=== PATIENT | female | born 1985 | race Caucasian/White ===

== ENCOUNTER 2024-12-19 09:16 | Outpatient (AMB) | payer BC, SELFPAY ==
--- NOTE | 2024-12-19 09:17 | AM.OFFWIN_ITS ---
Intake Vital Signs 12/19/24 09:22 12/19/24 09:45 Height 5 ft 7 in Weight 249 lb 8 oz BMI 39.1 BP 184/90 H 150/82 H Blood Pressure Location Rt brachial Rt brachial Position Sitting Sitting Respiration 14 Pulse 109 H 102 H Pulse Source Pulse Oximeter Auscultation Temp 97.1 F Temp Source Oral Pulse Oximetry (%) 99 Oxygen Delivery Method Room Air Intake Visit Reasons: est/blood pressure issue Intake Note: Patient c/o high bp and patint also has been having headache. Patient went to urgent care last week and bp was 166/110. Patient Tobacco Use Status: Never used Tobacco Allergies No Known Allergies Allergy (Verified 12/19/24 09:41) Medication List - Last Reconciled 12/19/24 by JAK Cole-YAW amoxicillin-pot clavulanate 875-125 mg 1 tab PO BID lamotrigine 400 mg PO DAILY lorazepam 0.25 mg PO DAILY PRN valacyclovir 500 mg PO DAILY Do you need a note to return to daycare/school/sports/work: No HPI HPI Comments History of Present Illness Details History of Present Illness The patient is a 39-year-old female presenting with elevated blood pressure. - Initially flagged as elevated during a n urgent care visit for sinus or ear infection consultation. - No past personal history of hypertensi on, and blood pressure was normal during pregnancies. - Family history indicates the mother's experience with hypertension and diabetes, including a heart attack. - Current blood pressure reading is 150/ 82. - Associated aural symptoms include ting ling near the right ear, ear feels full; on augmentin. - No current chest pain, dyspnea, or benjy ma are reported. - Denies use of cold medications, stimul ants. Physical Exam General: Well developed, well nourished, in no acute distress. Appears stated age. Head: Normocephalic, atraumatic. Eyes: Pupils are equal, round and reactive to light and accommodation. Conjunctivae are clear. Vision grossly normal. TM intact and dull on R, intact and clear on L Lungs: Clear to auscultation bilaterally. No rales, rhonchi or wheeze noted. Good air flow in all drake. No carotid bruit bilat. Heart: Mildly tachycardic, Regular rhythm. No murmurs, click, rubs or gallops are noted. Pulses: Peripheral pulses are equal and palpable bilaterally. Extremities: No clubbing, cyanosis nor edema is noted. Psych: Mildly anxious Neuro - nonfocal Results - Labs ordered including blood count, ki dney function, liver enzymes, and electrolytes. - Diabetes screening due to family histo ry and its potential impact on blood pressure. - Additional tests include magnesium and phosphorus levels, urine test for kidney screening, and thyroid function tests. - EKG ordered for assessment of heart rh ythm and to screen for any hypertensive heart disease. WNL no LVH Discussion Notes In today's visit, we discussed the likely diagnosis of essential hypertension given the elevated blood pressure reading and family history. The patient expressed concern regarding the ear symptoms; this was explored, and potential fluid in the right ear was noted. An EKG was proposed to rule out cardiac enlargement due to longstanding hypertension. I advised labs to screen for contributing conditions such as diabetes and thyroid disease. The necessity of signing up for our patient portal to track lab results was highlighted, and she was shown how to do so using a QR code. We discussed the options moving forward, particularly the potential need for hypertension medication based on lab results, as well as the importance of follow-up to prevent cardiac complications. I aimed to schedule a follow-up within one to two weeks and discussed transitioning to [facility] pharmacy as [facility] branches were closing. Assessment and Plan 1. Essential Hypertension: The patient's elevated blood pressure is identified as essential hypertension, likely linked to family history. An EKG has been ordered for cardiac evaluation, and various lab tests will screen for associated conditions. Follow-up will focus on medication options post-lab results and lifestyle modifications to manage blood pressure levels. Close monitoring is advised due to the family?s cardiovascular history. 2. Middle Ear Effusion (Otitis Media wit h Effusion): The dull right tympanum indicates fluid accumulation, potentially contributing to the patient's symptoms. Currently observed conservatively, though the patient will be re- evaluated if symptoms persist. Cont Augmentin and complete course. will need to ensure resolution at next visit. If persists, consider additional workup. Pt will be sent lab results and plan via the portal later today. Patient Instructions - Monitor your blood pressure regularly at home. - Complete the lab tests ordered to asse ss overall health and rule out secondary causes of hypertension. - Sign up for the patient portal to view lab results and receive medical updates. - Schedule a follow-up appointment withbarb n two weeks to discuss your results and treatment plan. - Switch your pharmacy to [facility] due to [facility] closures if you need prescription medications. Consent Patient was informed and verbally consented to the use of an ambient scribe for clinic note documentation during this visit. Total time spent caring for the patient today was 31 minutes. This includes time spent before the visit reviewing the chart, time spent during the visit, and time spent after the visit on documentation, reviewing laboratory results, diagnostic imaging, medications, performing a medically necessary evaluation, counseling on diagnoses, care coordination, ordering appropriate tests, ordering appropriate medications, review of tests performed by other providers, reporting test results with the patient, communication with other healthcare providers. PFSH Social History Patient Tobacco Use Status: Never used Tobacco Physical Exam Vital Signs: Last Vital Signs Temp 97.1 F 12/19/24 09:22 Pulse 102 H 12/19/24 09:45 Resp 14 12/19/24 09:22 BP 150/82 H 12/19/24 09:45 Pulse Ox 99 12/19/24 09:22 Oxygen Delivery Method Room Air 12/19/24 09:22 BMI result Body Mass Index 39.1 Office Procedures EKG [id number], Complete Assessment & Plan Assessment & Plan (1) HTN (hypertension): Code(s): I10 - Essential (primary) hypertension Qualifiers: Hypertension type: primary hypertension Qualified Code(s): I10 - Essential (primary) hypertension (2) BMI 39.0-39.9,adult: Code(s): Z68.39 - Body mass index [BMI] 39.0-39.9, adult (3) Obesity (BMI 30-39.9): Code(s): E66.9 - Obesity, unspecified Plan . Orders: Orders 2 Complete Blood Count no Diff Today I10 - Essential (primary) hypertension Hemoglobin A1c Today I10 - Essential (primary) hypertension Microalbumin, Random (w Creat) Today I10 - Essential (primary) hypertension TSH reflex Free T4 Today I10 - Essential (primary) hypertension Magnesium Today I10 - Essential (primary) hypertension Comprehensive Met. Panel Today I10 - Essential (primary) hypertension Phosphorus Today I10 - Essential (primary) hypertension Patient Instructions: Patient Instructions - Monitor your blood pressure regularly at home. - Complete the lab tests ordered to assess overall health and rule out secondary causes of hypertension. - Sign up for the patient portal to view lab results and receive medical updates. - Schedule a follow-up appointment within two weeks to discuss your results and treatment plan. - Switch your pharmacy to [facility] due to [facility] closures if you need prescription medications. Coding Level of Care Code Est Pt Level 4 (73321) Diagnoses Primary hypertension I10 Hypertension type: primary hypertension BMI 39.0-39.9,adult Z68.39 Obesity (BMI 30-39.9) E66.9 CPT Codes EKG - CPT: 59447-[id number], Complete ([id number])
[2024-12-19 09:22] VITALS: BP 184/90; PULSE 109; RESP 14; TEMP 36.2; O2SAT 99; BMI 39.1
[2024-12-19 09:45] VITALS: BP 150/82; PULSE 102
== END 2024-12-19 10:05 | disposition home or self-care (01) ==
PROVIDERS: Visit Provider Nurse Practitioner Family
DX: I10 Essential (primary) hypertension (principal); Z68.39 Body mass index [BMI] 39.0-39.9, adult; E66.9 Obesity, unspecified

== ENCOUNTER → 2024-12-19 09:16 | Outpatient (BNVA) | payer BC, SELFPAY | DX: I10 Essential (primary) hypertension (principal); E66.9 Obesity, unspecified; Z68.39 Body mass index [BMI] 39.0-39.9, adult | CPT/HCPCS: 93005 ==

== ENCOUNTER 2024-12-19 10:15 | Outpatient (REF) | payer BC, SELFPAY ==
[2024-12-19 11:58] LABS: Hematocrit 43.8 % (37.0-47.0); Hemoglobin 15.1 g/dl (12.0-16.0); Mean Corpuscular HGB Conc 34.5 g/dl (31.0-35.0); Mean Corpuscular Hemoglobin 29.6 pg (27.0-33.0); Mean Corpuscular Volume 85.9 fL (80.0-98.0); Mean Platelet Volume 10.2 fL (9.4-12.3); Platelet Count 298 X10*3/uL (160-400); Red Cell Distribution Width 12.7 % (11.0-16.0); White Blood Count 10.5 X10*3/uL (4.8-10.8)
[2024-12-19 12:14] LABS: Estimated Average Glucose 105 mg/dL; Hemoglobin A1c % 5.3 % (<6.0); Total Hemoglobin (HGBA1C) 3942.8735 umol/L
[2024-12-19 12:33] LABS: Creatinine Urine 100.35 mg/dL; Microalbum/Creatinine Ratio Ur 10.9 ug/mg cr (<30)
[2024-12-19 12:55] LABS: Alanine Aminotransferase 26 U/L (0-31); Albumin Level 4.2 g/dL (3.5-5.0); Alkaline Phosphatase 109 U/L (39-117); Anion Gap 12 (12-20); Aspartate Amino Transferase 24 U/L (5-31); Bilirubin Total 0.3 mg/dL (0.0-1.0); Blood Urea Nitrogen 11 mg/dL (9-16); Calcium 9.2 mg/dL (8.4-10.2); Carbon Dioxide 26 mmol/L (22-29); Chloride 106 mmol/L (96-108); Estimated Glomerular Filt Rate > 60; Glucose Random 94 mg/dL (60-115); Magnesium 1.9 mg/dL (1.6-2.6); Potassium 3.7 mmol/L (3.3-5.1); Sodium 140 mmol/L (135-145)
[2024-12-19 13:00] LABS: TSH reflex Free T4 2.56 uIU/mL (0.32-4.0)
== END 2024-12-19 10:16 | disposition home or self-care (01) ==
LOC: HO.WFDLDS 10:15
PROVIDERS: Visit Provider Nurse Practitioner Family
DX: I10 Essential (primary) hypertension (principal); Z13.1 Encounter for screening for diabetes mellitus
CPT/HCPCS: 36415; 80053; 82043; 82570; 83036; 83735; 84100; 84443; 85027

== ENCOUNTER 2024-12-26 08:07 | Outpatient (REF) | payer BC, SELFPAY ==
[2024-12-26 13:03] LABS: Phosphorus 3.3 mg/dL (2.7-4.5)
== END 2024-12-26 08:08 | disposition home or self-care (01) ==
LOC: HO.WFDLDS 08:07
PROVIDERS: Visit Provider Nurse Practitioner Family
DX: E83.39 Other disorders of phosphorus metabolism (principal)
CPT/HCPCS: 36415; 84100

== ENCOUNTER 2025-01-12 10:13 | Outpatient (AMB) | payer BC, SELFPAY ==
--- NOTE | 2025-01-12 10:36 | A.OFFPC_ITS ---
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 Intake Note: New patient visit Assistant Pressman Required: No Allergies No Known Allergies Allergy (Verified 12/19/24 09:41) Medication List - Last Reconciled 01/12/25 by Zeny Mortensen PA-C cetirizine (Zyrtec) 10 mg PO DAILY PRN lamotrigine 400 mg PO DAILY lorazepam 0.25 mg PO DAILY PRN mometasone 0.1% 1 appl topical DAILY valacyclovir 500 mg PO DAILY Tobacco use date assessed: 01/12/25 Dental Screening Dental Screen Date: 01/12/25 Did you have a dental visit in the last 12 months?: Yes Did you have a dental problem in the last 6 months where you did not have access to dental care?: No Was dental information given to patient?: Patient has dentist 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 She has a hx of elevated bps without dx of htn, anxiety and depression -Needs referral to derm for skin checks, fam hx of skin ca CV: Bp today in the office is elevated at 124/88. Psych: in 2005 she was dx with anxiety and depression and has been on lamotrigine and lorazepam since then. No hospitalizations. No SI/HI. GI: She states for the last 2 years she has not had a normal bowel movement. She goes to the bathroom 2-3 x a day at a minimum. She has loose stools. She has not fully formed BM in 2 years. She sometimes gets constipation but never has to treat this. She is sensitive to certain foods likes like salad. She denies any blood in stool. No weight loss. She has noted mucous with the stool. No rectal pain or irritation. No colonoscopy hx. No travel prior to starting. No antibiotic use. No fam hx of IBD. 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 with [facility] Fam hx: sister has melanoma, maternal grandfather lung ca, mother ID in her 60s, brother has htn PFSH Surgical History (Updated 01/12/25 @ 11:28 by Tawanna Cifuentes CMA) H/O removal of cyst Family History (Updated 01/12/25 @ 11:33 by Tawanna Cifuentes CMA) Mother HTN (hypertension) High serum cholesterol sulfate Diabetes Heart attack Maternal Grandmother HTN (hypertension) Diabetes Alcoholism Maternal Grandfather Lung cancer Alcoholism Other Melanoma Social History (Updated 01/12/25 @ 11:33 by Tawanna Cifuentes CMA) Housing: House Alcohol intake: current Patient Tobacco Use Status: Former Tobacco user (quit 2009) Cigarette Packs Per Day: 0.5 Years Smoked: 10 e-Cigarette/Vaping Use: Never Used Second Hand Smoke Exposure: No Use of substances other than those prescribed or required for medical reasons: No service: No Current occupational status: employed 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 1. Little interest or pleasure in doing things: not at all 2. Feeling down, depressed, or hopeless: not at all 3. Trouble falling or staying asleep, or sleeping too much: not at all 4. Feeling tired or having little energy: not at all 5. Poor appetite or overeating: not at all 6. Feeling bad about yourself - or that you are a failure or have let yourself or your family down: not at all 7. Trouble concentrating on things, such as reading the newspaper or watching television: not at all 8. Moving or speaking so slowly that other people could have noticed. Or the opposite - being so fidgety or restless that you have been moving around a lot more than usual: not at all 9. Thoughts that you would be better off or of hurting yourself in some way: not at all Total score: 0 Depression Screening Interpretation: Negative Depression Screening Done: Yes 93995 - PHQ-9 Billing: Yes Source: Developed by Drs. Elder Tipton, Sarina Lazaro, Chad Sarkar and colleagues, with an educational moody from [employer]. Thrive Questionnaire Date Thrive assessed: 12/26/24 I am a: Patient What is your living situation today?: I have a steady place to live Within the past 12 months, did the food you bought not last and you didn't have the money to get more?: Never true Within the past 12 months, did you worry whether your food would run out before you got money to buy more?: Never true Do you have trouble paying for medicines?: No Do you have trouble getting transportation to medical appointments?: No Do you have trouble paying your heating and electricity bill?: No Do you have trouble taking care of your child, family member or friend?: No Do you have trouble with day-to-day activities such as bathing, preparing meals, shopping, managing finances, etc.?: No Are you currently unemployed and looking for a job?: No Are you interested in more education?: No Please select the resources that you would like help with: None Currently or been in a relationship where the following occur: No concerns reported THRIVE Score: 0 AUDIT C Alcohol Use Questionnaire (AUDIT-C) 1. How often do you have a drink containing alcohol?: Monthly or less 2. How many drinks containing alcohol do you have on a typical day when you are drinking?: 1 or 2 3. How often do you have six or more drinks on one occasion?: Never Total Score: 1 TJ-7 AMB Questionnaire TJ-7 Feeling nervous, anxious, or on edge: 0 = Not at all Not being able to stop or control worryin = Not at all Worrying too much about different things: 0 = Not at all Trouble relaxin = Not at all Being so restless that it is hard to sit still: 0 = Not at all Becoming easily annoyed or irritable: 0 = Not at all Feeling afraid as if something awful might happen: 0 = Not at all Total TJ-7 score (0-4 normal; 5-9 mild; 10-14 moderate; 15-21 severe): 0 Source: Developed by Drs. Elder Tipton, Sarina Lazaro, Chad Sarkar and colleagues, with an educational moody from [employer]. TJ-7 Assessment Billing TJ-7 Assessment Tool: TJ-7 Assessment 52395 Physical exam (Primary Care) Vital Signs: Last Vital Signs Pulse 103 H 01/12/25 10:43 BP 124/88 01/12/25 10:43 Pulse Ox 98 01/12/25 10:43 Oxygen Delivery Method Room Air 01/12/25 10:43 BMI result Body Mass Index 38.5 Tobacco/Smoking Status: Tobacco use Status Tobacco use date assessed 01/12/25 01/12/25 10:46 Patient Tobacco Use Status Former Tobacco user (quit 01/12/25 10:46 2009) e-Cigarette/Vaping Use Never Used 01/12/25 10:46 PHQ-9: PHQ-9 Score PHQ-9: Total score 0 01/12/25 11:33 Depression Screening Interpretation: Negative Thrive Assessment: Date of Thrive Assessment Date Thrive assessed 12/26/24 01/12/25 10:39 Currently or been in a relationship where the following occur: No concerns reported Const Orientation/consciousness: patient oriented x3 HENMT Ears: hearing grossly normal bilaterally Neck Thyroid: Thyroid normal Lymphatic: no lymphadenopathy noted Resp Auscultation: clear to auscultation bilaterally Cardio Rate: regular rate Rhythm: regular rhythm Heart sounds: S1 normal heart sound present and S2 normal heart sound present GI Inspection: Yes normal to inspection Palpation (GI): Soft to palpation and Other GI palpation findings present (nontender, no cva tenderness) Auscultation: normoactive bowel sounds Rectal Exam - Female: deferred Skin General skin exam: no rashes or lesions noted Neuro General: patient oriented x3, gait normal and no focal motor deficits Coding Level of Care Code New Pt Level 4 (47050) Complex EM visit Add On G2211 Diagnoses Primary hypertension I10 Hypertension type: primary hypertension Hypophosphatemia E83.39 Frequent loose stools R19.7 Additional Codes PHQ-9 - 90535 - PHQ-9 Billing: Yes ([id number]) TJ-7 Assessment Billing - TJ-7 Assessment Tool: TJ-7 Assessment 41613 ([id number]) Assessment & Plan Assessment & Plan (1) HTN (hypertension): Code(s): I10 - Essential (primary) hypertension Category: Medical Qualifiers: Hypertension type: primary hypertension Qualified Code(s): I10 - Essential (primary) hypertension Plan: We will start on metoprolol. Discussed risks and benefits and adverse effects of this medication. Opted for this as she does get very nervous going places and does feel at times that that elevates her blood pressure. She also does have a little tachycardia but that resolves when she feels comfortable with the location. This has been for most of her life. (2) Hypophosphatemia: Code(s): E83.39 - Other disorders of phosphorus metabolism Category: Medical Plan: We will rechecked. (3) Frequent loose stools: Code(s): R19.7 - Diarrhea, unspecified Category: Medical Plan: Referral to GI. Labs ordered today. We will follow up pending test results. Orders: Orders Lipid Panel Today E83.39 - Other disorders of phosphorus metabolism, I10 - Essential (primary) hypertension Comprehensive Met. Panel Today E83.39 - Other disorders of phosphorus metabolism, I10 - Essential (primary) hypertension Phosphorus Today E83.39 - Other disorders of phosphorus metabolism C Reactive Protein Today R19.7 - Diarrhea, unspecified Calprotectin, Fecal Today R19.7 - Diarrhea, unspecified Vitamin D 25-OH (D2 and D3) Today E83.39 - Other disorders of phosphorus metabolism, I10 - Essential (primary) hypertension, R19.7 - Diarrhea, unspecified Vitamin B12 Today E83.39 - Other disorders of phosphorus metabolism, I10 - Essential (primary) hypertension, R19.7 - Diarrhea, unspecified Erythrocyte Sedimentation Rate Today R19.7 - Diarrhea, unspecified Endomysial IgA rflx Titer Today R19.7 - Diarrhea, unspecified Transglutaminase Ab IgG Today R19.7 - Diarrhea, unspecified Immunoglobulin A Today R19.7 - Diarrhea, unspecified Referrals Dermatology Referral Z12.83 - Encounter for screening for malignant neoplasm of skin Gastroenterology Referral R19.7 - Diarrhea, unspecified Medications: New metoprolol succinate ER 25 mg PO DAILY 30 tabs 1RF
[2025-01-12 10:43] VITALS: BP 124/88; PULSE 103; O2SAT 98; BMI 38.5
--- OUTSIDE RECORDS SUMMARY | 2025-01-12 12:06 | XMS_ITS | Clinical Summary ---
Author Organization [facility] [address] [facility] Address [address] [place] [phone] Phone Care Team Providers Care Juvenile Justice Officer Name Role Phone Zeny Mortensen Primary Care Provider [phone] Allergies No known active allergies Medications acetaminophen (TYLENOL) 500 mg tablet Take 2 tablets (1,000 mg total) by mouth every 6 (six) hours if needed. Active ibuprofen (ADVIL,MOTRIN) 200 mg tablet Take 4 tablets (800 mg total) by mouth every 6 (six) hours if needed. Active lamoTRIgine (LaMICtal) 200 mg tablet TAKE 2 TABLETS BY MOUTH EVERY DAY TOTAL OF 400MG EVERY DAY Active LORazepam (ATIVAN) 0.5 mg tablet Take 1 tablet (0.5 mg total) by mouth 1 (one) time each day if needed for anxiety. Active mometasone (ELOCON) 0.1 % ointment Apply a thin layer to the affected area nightly 30 g 10/26/2024 Active valACYclovir (VALTREX) 500 mg tablet TAKE 1 TABLET BY MOUTH DAILY 90 tablet 1 12/09/2024 Active Active Problems Problem Noted Date Diagnosed Date Hyperkeratosis 12/08/2023 Overview (08/29/2024): Last Assessment & Plan: Almost compeltely resolved. Lichen simplex chronicus 12/08/2023 Overview (08/29/2024): Last Assessment & Plan: Improved,but likely needs long tream treatment. Will cut back to nightly most areas and BID in those areas of fissuring. If not resolved by next visit, could consider excision of left posterior fissure and surrounding hyperkeratosis. Unclear if she has LS, but not based on exam today. She willc ontinue VSC guidelines and regular skin barrier. She will cut back to MWFSu on two weeks. Assessment & Plan (11/21/2024 5:45 PM EST): Significantly improved. Continue mometasone nightly and Vaseline QAM with particular attention to hyperkeratotic area. She agreed. Assessment & Plan (10/26/2024 1:03 PM EST): Worsened due to non-compliance. I explained to Jossy that many people with this condition, like eczema, need to use a regular medication to keep the skin healthy and asymptomatic. In her case, her long pause likely allowed things to worsen again. I explained that the skin may not be changing as it is fissured, which can be a sign of the steroid being too potent. I encouraged her to switch to mometasone, soak and seal in the AM with Vaseline or coconut oil, and follow the VSC guidelines strictly. She agreed. Yeast culture sent to rule out as a cause for worsening sx. Will treat prn. Major depressive disorder, r ecurrent, moderate (CMS/HCC V24, CMS/HCC V28) 11/21/2020 Obesity (BMI 30-39.9) 01/06/2018 Migraine 10/09/2017 Generalized anxiety disorder 06/25/2017 Herpes simplex 04/27/2017 Overview (08/29/2024): Genital, 3 lifetime infections as of 10/2015 Mood swings 04/27/2017 Encounters Date Type Department Care Team Description 11/21/2024 1:45 PM EST Office Visit Obstetrics and Gynecology [address] [phone] Jordyn Hsu MD Lichen simplex chronicus (Primary Dx) 10/26/2024 8:30 AM EST Office Visit Obstetrics and Gynecology [address] [phone] Jordyn Hsu MD Lichen simplex chronicus (Primary Dx) from Last 3 Months Immunizations Name Administration Dates Next Due HPV, Quadrivalent 01/26/2007,10/09/2006,07/28/20 06 Moderna SARS-CoV-2 COVID-19, mRNA, LNP-S, preservative free 08/26/2021,02/08/2021,01/11/2021 Td Tetanus diptheria (Tdvax) 7yo and older 10/29,07/28/2006 Tdap Tetanus diptheria acell ular pertussis (Boostrix; Adacel) 7yo and older 10/07/2011 Surgical History Surgery Date Site/Laterality Comments WISDOM TOOTH EXTRACTION 2005 PROCEDURE: HISTORICAL WISDOM TEETH EXTRACTION Medical History Medical History Date Comments Hypothyroidism 10/09/2017 DX:Hypothyroidis m; COMMENT: Grave's ophthalmopathy Adjustment disorder with dep ressed mood 06/25/2017 DX:Adjustment disorder with depressed mood Generalized anxiety disorder 06/25/2017 DX: Generalized anxiety disorder Herpes simplex 04/27/2017 DX:Herpes simple x; COMMENT: Genital, 3 lifetime infections as of 10/2015 Mood swings 04/27/2017 DX:Mood swings Migraine 10/09/2017 DX:Migraine Bipolar disorder ([facility]/HCC V2 4, CMS/HCC V28) 12/15/2017 DX:Bipolar disorder ([facility]) Family History Medical History Relation Name Comments No Known Problems Brother 1/2 bro No Known Problems Daughter Alcohol abuse Father no contact Diabetes Mother Heart attack Mother colon polyp, DM , HTN, CAD, PVD ([place] age 60) Hypertension Mother Breast cancer Mother's side great aunt COPD Paternal Grandmother Stroke Melanoma Sister 1 1/2 sister dx at 31, doing well at 36 No Known Problems Sister 2 Colon cancer Neg Hx Ovarian cancer Neg Hx Prostate cancer Neg Hx Uterine cancer Neg Hx Relation Name Status Comments Brother 1/2 bro Alive Daughter Alive Father Alive Maternal Grandfather Maternal Grandmother Mother Alive Mother's side Paternal Grandfather Paternal Grandmother Sister 1 1/2 sister Alive Sister 2 Alive Social History Tobacco Use Types Packs/Day Years Used Date Smoking Tobacco: Former Cigarettes Q uit: 01/06/2010 Smokeless Tobacco: Never Alcohol Use Standard Drinks/Week Comments Yes 0 (1 standard drink = 0.6 oz pur e alcohol) Housing Instability Answer Date Recorde d Are you worried that in the next 2 months you may not have stable housing? No 10/26/2024 Food Access & Nutrition Answer Date Rec orded Do you have access to a vari ety of food including fruits and vegetables? Yes 10/26/2024 Access to Healthcare Answer Date Record ed Within the last 3 months, ho w many times did you visit the emergency department for your medical care? 0 10/26/2024 Health Literacy Answer Date Recorded How often do you need to hav e someone help you when you read instructions, pamphlets, or other written material from your doctor or pharmacy? Never 10/26/2024 Caregiver: How often do you need to have someone help you when you read instructions, pamphlets, or other written material from your doctor or pharmacy? Not on file 10/26/2024 Financial Risk Answer Date Recorded How hard is it for you to pa y for the very basics like food, housing, medical care, and air conditioning / heating? Not very hard 10/26/2024 Transportation Answer Date Recorded Has the lack of transportati on kept you from meetings, work, or from getting things needed for daily living? No Has the lack of transportati on kept you from medical appointments or from getting medications? No 10/26/2024 Social Isolation Answer Date Recorded How often do you feel lonely or isolated from th ose around you? Never 10/26/2024 Food Risk Answer Date Recorded Within the past 12 months we worried whether our food would run out before we got money to buy more. Never true 10/26/2024 Within the past 12 months th e food we bought just didn't last and we didn't have money to get more. Never true 10/26/2024 Dependent Care Answer Date Recorded Do you need help finding or paying for care for your loved ones. For example, child psychology teacher or elderly care for an older adult? No 10/26/2024 Education Answer Date Recorded Do you think completing more education or training, like finishing a GED, going to college, or learning a trade, would be helpful for you? N/A 10/26/2024 Employment and Income Answer Date Recor ded During the last four weeks, have you been actively looking for work? Unable to respond 10/26/2024 Living Situation Answer Date Recorded What is your living situation? 0 10/26/2024 Comments No Sex and Gender Information Value Date Recorded Sex Assigned at Not on file Legal Sex Female 2:24 PM EST Gender Identity Not on file Sexual Orientation Not on file Obstetrics History Para Term AB IAB SAB Ectopic Multiple Livin g Live Births 1 1 1 1 1 Date Outcome GA Total Labor Labor/2nd/3rd Weight Sex Type Anes PTL Tonie A1 A5 Name Clin 012 35w 0d 2693 g (95 oz) F Vag-S pont Living Complications: premat ure rupture of membranes Last Filed Vital Signs Vital Sign Reading Time Taken Comments Blood Pressure 152/103 11/21/2024 1:57 PM EST Pulse 85 11/21/2024 1:57 PM EST Temperature - - Respiratory Rate 12 11/21/2024 1:57 PM EST Oxygen Saturation - - Inhaled Oxygen Concentration - - Weight 112 kg (247 lb) 11/21/2024 1:57 PM EST Height 170.2 cm (5' 7 ) 11/21/2024 1:57 PM EST Body Mass Index 38.69 11/21/2024 1:57 PM EST Plan of Treatment Upcoming Encounters Date Type Department Care Team (Late st Contact Info) Description 01/23/2025 2:00 PM EDT Office Visit Obstetrics and Gynecology [address] [phone] Jordyn Hsu MD [place], [place] Health Maintenance Due Date Last Done Comments Hepatitis B Vaccines (1 of 3 - 19+ 3-dose series) 2004 HIV Screening 09/06/2022 Hepatitis C Screening 09/06/2022 COVID-19 Vaccine ( - 2023-2 5 season) 2024 08/26/2021, 02/08/2021, 01/11/2021 Influenza Vaccine (Season Ended) 2025 Depression Screening 10/26/2025 10/26/2024 Social Influencers of Health Screening 10/26/2025 10/26/2024 Cholesterol Screening (Lipid Panel) 07/13/2028 07/13/2023 Cervical Cancer Screening: HPV 09/17/2028 09/17/2023 DTaP,Tdap,and Td Vaccines (4 - Td or Tdap) 10/29/2031 10/29/2021, 10/07/2011, 07/28/2006 HPV Vaccines Completed 01/26/2007, 10/09/2006, 07/28/2006 HIB Vaccines Aged Out No longer eligi ble based on patient's age to complete this topic Hepatitis A Vaccines Aged Out No long er eligible based on patient's age to complete this topic IPV Vaccines Aged Out No longer eligi ble based on patient's age to complete this topic MMR Vaccines Aged Out No longer eligi ble based on patient's age to complete this topic Meningococcal ACWY Vaccine Aged Out N o longer eligible based on patient's age to complete this topic Meningococcal B Vaccine Aged Out No l onger eligible based on patient's age to complete this topic Pneumococcal Vaccine: Pediatrics (0 to 5 Years) and At-Risk Patients (6 to 64 Years) Aged Out No longer eligible b ased on patient's age to complete this topic RSV Immunization Patients Under 20 months Aged Out No longer eligible b ased on patient's age to complete this topic Varicella Vaccines Aged Out No longer eligible based on patient's age to complete this topic Procedures Procedure Name Priority Date/Time Associated Diagnosis Comments CULTURE GENITAL Routine 10/26/2024 12:51 PM EST Lichen simplex chronicus HM HPV Routine 09/17/2023 LIPID PANEL Routine 07/13/2023 from Last 3 Months or Most Recently Relevant to Health Maintenance Results * Culture genital (10/26/2024 12:51 PM EST) Culture, Genital No yeast, Beta Strep group B, Neisseria gonorrhoeae, Listeria, Gardnerella vaginalis, or other predominant potentially significant pathogens noted. 10/29/2024 11:25 AM EST [facility] Swab Vaginal structure / Unknown Non-blood Collection / Unknown 10/26/2024 12:51 PM EST 10/26/2024 12:51 PM EST Jordyn Hsu MD LAB MICROBIOLOGY - GENERAL ORDERABLES Final Result [facility] ([email or web address] [address] [place] [address], [place] [phone] * Cervical Cancer Screening: HPV (09/17/2023) Pathologist [facility] Cervical Cancer Screening: HPV Negative, abstracted Historical Provider HEALTH MAINTENANCE Final Result * (ABNORMAL) Lipid panel (07/13/2023) Pathologist [facility] LDL/HDL Ratio 5(A) 0 - 4 Triglycerides 208(A) 0 - 150 mg/dL Cholesterol 187 0 - 200 mg/dL HDL 38(A) >=40 mg/dL LDL Cholesterol 108(A) 0 - 100 mg/dL Blood Venous blood specimen / Unknown Historical Provider LAB BLOOD ORDERABLES Teri l Result from Last 3 Months or Most Recently Relevant to Health Maintenance Insurance [facility] Care Teams Juvenile Justice Officer Relationship Specialty Start Date End Date Zeny Mortensen PA [address] [place] [phone] PCP - General Physician Design Inserter 11/18/24
== END 2025-01-12 11:21 | disposition home or self-care (01) ==
LOC: HO.HMCFM 10:14
PROVIDERS: PCP Physician Assistant; Visit Provider Physician Assistant
DX: I10 Essential (primary) hypertension (principal); E83.39 Other disorders of phosphorus metabolism; R19.7 Diarrhea, unspecified

== ENCOUNTER → 2025-01-12 10:13 | Outpatient (BNVA) | payer BC, SELFPAY | PROVIDERS: PCP Physician Assistant; Visit Provider Physician Assistant | DX: I10 Essential (primary) hypertension (principal); E83.39 Other disorders of phosphorus metabolism; R19.7 Diarrhea, unspecified | CPT/HCPCS: 96127 ==

== ENCOUNTER 2025-01-17 07:54 | Outpatient (REF) | payer BC, SELFPAY ==
--- OUTSIDE RECORDS SUMMARY | 2025-01-17 07:58 | XMS_ITS | Clinical Summary ---
Author Organization [facility] [address] [facility] Address [address] [place] [phone] Phone Care Team Providers Care Lathing Supervisor Name Role Phone Zeny Mortensen Primary Care Provider [phone] Allergies No known active allergies Medications acetaminophen [...] PM EST Office Visit Obstetrics and Gynecology [address] [phone] Jordyn Hsu MD Lichen simplex chronicus (Primary Dx) 10/26/2024 8:30 AM EST Office Visit Obstetrics and Gynecology [address] [phone] Jordyn Hsu MD Lichen simplex chronicus (Primary [...] DX:Mood swings Migraine 10/09/2017 DX:Migraine Bipolar disorder ([facility]/HCC V2 4, CMS/HCC V28) 12/15/2017 DX:Bipolar disorder ([facility]) Family History Medical History Relation Name Comments No Known Problems Brother 1/2 bro No Known Problems Daughter Alcohol abuse Father no contact Diabetes Mother Heart attack Mother colon polyp, DM , HTN, CAD, PVD (OR age 60) Hypertension Mother Breast cancer Mother's [...] for your loved ones. For example, child nutrition assistant or elderly care for an older adult? [...] PM EDT Office Visit Obstetrics and Gynecology [address] [phone] Jordyn Hsu MD [place], [place] Health Maintenance Due Date Last Done [...] significant pathogens noted. 10/29/2024 11:25 AM EST [facility] Swab Vaginal structure / Unknown Non-blood Collection / Unknown 10/26/2024 12:51 PM EST 10/26/2024 12:51 PM EST Jordyn Hsu MD LAB MICROBIOLOGY - GENERAL ORDERABLES Final Result [facility] [address] [place] [address], [place] [phone] * Cervical Cancer Screening: HPV (09/17/2023) Pathologist [facility] Cervical Cancer Screening: HPV Negative, abstracted Historical Provider HEALTH MAINTENANCE Final Result * (ABNORMAL) Lipid panel (07/13/2023) Pathologist [facility] LDL/HDL Ratio 5(A) 0 - 4 Triglycerides 208(A) 0 - 150 mg/dL Cholesterol 187 0 - 200 mg/dL HDL 38(A) >=40 mg/dL LDL Cholesterol 108(A) 0 - 100 mg/dL Blood Venous blood specimen / Unknown Historical Provider LAB BLOOD ORDERABLES Teri l Result from Last 3 Months or Most Recently Relevant to Health Maintenance Insurance [facility] Care Teams Lathing Supervisor Relationship Specialty Start Date End Date Zeny Mortensen PA [address] [place] [phone] PCP - General Physician Printed Circuit Board Assembly Repairer 11/18/24
[2025-01-17 11:58] LABS: Alanine Aminotransferase 21 U/L (0-31); Albumin Level 4.2 g/dL (3.5-5.0); Alkaline Phosphatase 117 U/L (39-117); Anion Gap 12 (12-20); Aspartate Amino Transferase 24 U/L (5-31); Bilirubin Total 0.4 mg/dL (0.0-1.0); Blood Urea Nitrogen 11 mg/dL (9-16); C Reactive Protein 0.85 mg/dL (< or = 0.50); Calcium 9.1 mg/dL (8.4-10.2); Carbon Dioxide 26 mmol/L (22-29); Chloride 104 mmol/L (96-108); Cholesterol 194 mg/dL (<200); Estimated Glomerular Filt Rate > 60; Glucose Random 91 mg/dL (60-115); HDL Cholesterol 46 mg/dL (>40); LDL Cholesterol Calculated 122 mg/dL (<100); Phosphorus 2.8 mg/dL (2.7-4.5); Potassium 3.8 mmol/L (3.3-5.1); Sodium 138 mmol/L (135-145); Total Protein 6.8 g/dL (6.5-8.0); Triglycerides 130 mg/dL (<150)
[2025-01-17 12:17] LABS: Erythrocyte Sedimentation Rate 2 MM/HR (0-20)
[2025-01-17 12:19] LABS: Vitamin B12 453 pg/mL (200-900)
[2025-01-18 06:28] LABS: Immunoglobulin A 209 mg/dL (47-310)
[2025-01-18 21:59] LABS: Transglutaminase Ab IgG <1.0 U/mL
[2025-01-20 17:33] LABS: Endomysial IgA Antibody Negative (Negative)
[2025-01-21 13:52] LABS: Vitamin D 25-OH, D2 <4 ng/mL; Vitamin D 25-OH, D3 18 ng/mL; Vitamin D 25-OH, Total 18 ng/mL (30-100)
[2025-01-24 19:49] LABS: Calprotectin, Fecal 14 mcg/g
== END 2025-01-17 07:55 | disposition home or self-care (01) ==
LOC: HO.WFDLDS 07:54
PROVIDERS: Visit Provider Physician Assistant
DX: R19.7 Diarrhea, unspecified (principal); I10 Essential (primary) hypertension; E83.39 Other disorders of phosphorus metabolism
CPT/HCPCS: 36415; 80053; 80061; 82306; 82607; 82784; 83993; 84100; 85652; 86140; 86231; 86364

== ENCOUNTER 2025-02-01 14:05 | Outpatient (AMB) | payer BC, SELFPAY ==
--- NOTE | 2025-02-01 14:16 | A.OFFPC_ITS ---
Vital Signs 02/01/25 14:20 02/01/25 14:32 Height 5 ft 8.11 in Weight 250 lb 6 oz BMI 37.9 BP 128/94 H 122/88 Blood Pressure Location Rt brachial Rt brachial Position Sitting Sitting Respiration 14 Pulse 85 Pulse Source Pulse Oximeter Pulse Oximetry (%) 98 Oxygen Delivery Method Room Air Intake Visit Reasons: bp check and labs Intake Note: Blood pressure check and lab results. Regulatory Compliance Coordinator Required: No Allergies No Known Allergies Allergy (Verified 02/01/25 14:18) Medication List - Last Reconciled 02/01/25 by Zeny Mortensen PA-C cetirizine (Zyrtec) 10 mg PO DAILY PRN lamotrigine 400 mg PO BID lorazepam 0.25 mg PO DAILY PRN metoprolol succinate ER 25 mg PO DAILY mometasone 0.1% 1 appl topical DAILY valacyclovir 500 mg PO DAILY Tobacco use date assessed: 02/01/25 Dental Screening Dental Screen Date: 01/12/25 Did you have a dental visit in the last 12 months?: Yes Did you have a dental problem in the last 6 months where you did not have access to dental care?: No Was dental information given to patient?: Patient has dentist HPI bp check and labs HPI Details Pt is a 39 y/o female who presents today for a follow up she is relatively new here.. She has a hx of htn, anxiety and depression -last labs showed vitamin-D deficiency CV: Bp today in the office is elevated at 122/88. She states at home it is about 130/90. She has been compliant with the metoprolol 25 mg. Denies any adverse effects of this medication. She is a little concerned because she states that she has not been very active over the winter but recently she went to help her mother move and she was lifting something which was not particularly heavy but she was very winded after this. She says that she felt fatigued and had some chest tightness with the exertion. She says that she called her h usband because she was worried that she was having a heart attack. She says that she could feel her heart pounding in her chest. She has had similar symptoms with going up 1 flight of stairs. No family history of known heart disease. Psych: in 2005 she was dx with anxiety and depression and has been on lamotrigine and lorazepam since then. No hospitalizations. No SI/HI. GI: She has not yet heard from GI. No change in her irregular bowel movements.. Coordinator Skill Training Program: UTD with deneen Yanes hx: sister has melanoma, maternal grandfather lung ca, mother CA in her 60s, brother has htn PFSH Surgical History H/O removal of cyst Family History Mother HTN (hypertension) High serum cholesterol sulfate Diabetes Heart attack Maternal Grandmother HTN (hypertension) Diabetes Alcoholism Maternal Grandfather Lung cancer Alcoholism Other Melanoma Social History (Updated 02/01/25 @ 14:33 by Tawanna Cifuentes CMA) Housing: House Alcohol intake: current Patient Tobacco Use Status: Former Tobacco user (quit 2009) Cigarette Packs Per Day: 0.5 Years Smoked: 10 e-Cigarette/Vaping Use: Never Used Second Hand Smoke Exposure: No service: No Current occupational status: employed 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 Current occupational exposures/hazards: No Cognitive needs: No Hearing needs: No Vision needs: No Questionnaire Thrive Questionnaire Date Thrive assessed: 12/26/24 I am a: Patient What is your living situation today?: I have a steady place to live Within the past 12 months, did the food you bought not last and you didn't have the money to get more?: Never true Within the past 12 months, did you worry whether your food would run out before you got money to buy more?: Never true Do you have trouble paying for medicines?: No Do you have trouble getting transportation to medical appointments?: No Do you have trouble paying your heating and electricity bill?: No Do you have trouble taking care of your child, family member or friend?: No Do you have trouble with day-to-day activities such as bathing, preparing meals, shopping, managing finances, etc.?: No Are you currently unemployed and looking for a job?: No Are you interested in more education?: No Please select the resources that you would like help with: None Currently or been in a relationship where the following occur: No concerns reported THRIVE Score: 0 Physical exam (Primary Care) Vital Signs: Last Vital Signs Pulse 85 02/01/25 14:20 Resp 14 02/01/25 14:20 BP 122/88 02/01/25 14:32 Pulse Ox 98 02/01/25 14:20 Oxygen Delivery Method Room Air 02/01/25 14:20 BMI result Body Mass Index 37.9 Tobacco/Smoking Status: Tobacco use Status Tobacco use date assessed 02/01/25 02/01/25 14:24 Patient Tobacco Use Status Former Tobacco user (quit 02/01/25 14:33 2009) e-Cigarette/Vaping Use Never Used 02/01/25 14:33 Thrive Assessment: Date of Thrive Assessment Date Thrive assessed 12/26/24 02/01/25 14:18 Currently or been in a relationship where the following occur: No concerns reported Const Orientation/consciousness: patient oriented x3 HENMT Ears: hearing grossly normal bilaterally Neck Thyroid: Thyroid normal Lymphatic: no lymphadenopathy noted Resp Auscultation: clear to auscultation bilaterally Cardio Rate: regular rate Rhythm: regular rhythm Heart sounds: S1 normal heart sound present and S2 normal heart sound present GI Inspection: Yes normal to inspection Palpation (GI): Soft to palpation and Other GI palpation findings present (nontender, no cva tenderness) Auscultation: normoactive bowel sounds Rectal Exam - Female: deferred Skin General skin exam: no rashes or lesions noted Neuro General: patient oriented x3, gait normal and no focal motor deficits Office Procedures EKG Details: EKG today in the office is normal sinus rhythm at a rate of 76 beats per minute with nonspecific STT wave abnormalities. No significant change from prior study. EKG interpreted myself and Dr. Hernandez. [id number], Complete Coding Level of Care Code Est Pt Level 4 (24229) Complex EM visit Add On G2211 Diagnoses Primary hypertension I10 Hypertension type: primary hypertension Chest pain, exertional R07.9 COTTON (dyspnea on exertion) R06.09 Vitamin D deficiency E55.9 CPT Codes EKG - CPT: 63623-[id number], Complete ([id number]) Assessment & Plan Assessment & Plan (1) HTN (hypertension): Code(s): I10 - Essential (primary) hypertension Category: Medical Qualifiers: Hypertension type: primary hypertension Qualified Code(s): I10 - Essential (primary) hypertension Plan: Increase metoprolol (2) Chest pain, exertional: Code(s): R07.9 - Chest pain, unspecified Category: Medical Plan: EKG today in the office as above. Currently asymptomatic. We did discuss signs and symptoms of chest pain that would require emergent medical treatment. (3) COTTON (dyspnea on exertion): Code(s): R06.09 - Other forms of dyspnea Category: Medical Plan: Chest x-ray, stress test, Holter and echo ordered. (4) Vitamin D deficiency: Code(s): E55.9 - Vitamin D deficiency, unspecified Category: Medical Plan: Vitamin-D ordered. We will monitor labs. Plan Short term follow up Orders: Orders AMB EKG-In Office 02/01/25 I10 - Essential (primary) hypertension, R06.09 - Other forms of dyspnea, R07.9 - Chest pain, unspecified Comprehensive [place]. Panel Fast 02/01/25 E55.9 - Vitamin D deficiency, unspecified, E83.39 - Other disorders of phosphorus metabolism, R06.09 - Other forms of dyspnea, R07.9 - Chest pain, unspecified Phosphorus 02/01/25 E55.9 - Vitamin D deficiency, unspecified, E83.39 - Other disorders of phosphorus metabolism, R06.09 - Other forms of dyspnea, R07.9 - Chest pain, unspecified CA stress test 02/01/25 I10 - Essential (primary) hypertension, R06.09 - Other forms of dyspnea, R07.9 - Chest pain, unspecified XR chest 2V 02/01/25 I10 - Essential (primary) hypertension, R06.09 - Other forms of dyspnea, R07.9 - Chest pain, unspecified NM cardiolite stress test 02/01/25 I10 - Essential (primary) hypertension, R06.09 - Other forms of dyspnea, R07.9 - Chest pain, unspecified CA echo transthoracic complete 02/01/25 I10 - Essential (primary) hypertension, R06.09 - Other forms of dyspnea, R07.9 - Chest pain, unspecified Magnesium 02/01/25 E55.9 - Vitamin D deficiency, unspecified, E83.39 - Other disorders of phosphorus metabolism, R06.09 - Other forms of dyspnea, R07.9 - Chest pain, unspecified Vitamin D 25-OH Total 02/01/25 E55.9 - Vitamin D deficiency, unspecified, E83.39 - Other disorders of phosphorus metabolism, R06.09 - Other forms of dyspnea, R07.9 - Chest pain, unspecified Medications: New cholecalciferol (vitamin D3) 125 mcg PO DAILY 90 caps 1RF metoprolol succinate ER 50 mg PO DAILY 90 tabs 0RF Discontinued metoprolol succinate ER Discontinued Reason: Doctor's Order 25 mg PO DAILY 30 tabs 1RF
[2025-02-01 14:20] VITALS: BP 128/94; PULSE 85; RESP 14; O2SAT 98; BMI 37.9
[2025-02-01 14:32] VITALS: BP 122/88
--- OUTSIDE RECORDS SUMMARY | 2025-02-01 15:20 | XMS_ITS | Clinical Summary ---
Author Organization [facility] Address [address] [place] [address] Care Team Providers Care Casino Dealer Name Role Phone Perla Bernal DO Primary Care Provider Unavaila ble Allergies No known active allergies Medications Medication Sig Dispensed Refills Start Date End Date Status lorazepam (Ativan) 0.5 MG tablet 1 po qday prn anxiety 15 Tablet 0 05/19/2022 Active LaMICtal 200 MG tablet TAKE 1 TABLET BY MOUTH TWICE DAILY 60 Tablet 2 08/11/2022 Active ibuprofen (ADVIL,MOTRIN) 200 MG tablet Take 4 Tablets by mouth every 6 hours as needed. 0 Active acetaminophen (TYLENOL) 500 MG tablet Take 2 Tablets by mouth every 6 hours as needed. 0 Active clobetasol (TEMOVATE) 0.05 % ointment Apply BID to the affected area for two weeks, then nightly 30 g 0 12/08/2023 Active valacyclovir (VALTREX) 500 MG tabletIndications:He rpes simplex Take 1 Tablet by mouth daily. 90 Tablet 1 02/08/2024 Active Active Problems Problem Noted Date Lichen simplex chronicus 12/08/2023 Last Assessment & Plan: Improved,but likely needs [...] skin barrier. She will cut back to FSu on two weeks. Hyperkeratosis 12/08/2023 Last Assessment & Plan: Almost compeltely resolved. Major depressive disorder, recurrent, mo derate 11/21/2020 Obesity (BMI 30-39.9) 01/06/2018 Migraine 10/09/2017 Generalized anxiety disorder 06/25/2017 Mood swings 04/27/2017 Herpes simplex 04/27/2017 Overview: Genital, 3 lifetime infections as of 10/2015 Resolved Problems Problem Noted Date Resolved Date Bipolar disorder 12/15/2017 01/06/2018 Hypothyroidism 10/09/2017 10/12/2017 Overview: Grave's ophthalmopathy Adjustment disorder with depressed mood 06/25/20 17 11/21/2020 Immunizations Name Administration Dates Next Due COVID-19 (Moderna) 02/08/2021,01/11/2021 COVID-19 (Moderna) PT Reported 08/26/2021,2020,01/11/2021 HPV (Gardasil) 01/26/2007,10/09/2006,07/28/2006 TD (STATE SUPPLIED FOR ADULTS AND CHILDREN) 09/2021,07/28/2006 Tdap 10/07/2011 Family History Medical History Relation Name Comments No Known Problems Brother 1/2 bro No Known Problems Daughter Alcohol Abuse Father no contact Diabetes Mother Hypertension Mother [place] Mother colon polyp, DM , HTN, CAD, PVD ([place] age 60) [place] Breast Mother's side great aunt COPD Paternal Grandmother Stroke Melanoma Sister 1 1/2 sister dx at 31, doing well at 36 No Known Problems Sister 2 CA Colon Negative Hx CA Ovarian Negative Hx CA Prostate Negative Hx Uterine Cancer Negative Hx Relation Name Status Comments Brother 1/2 bro Alive Daughter Alive Father Alive Maternal Grandfather Maternal Grandmother Mother Alive Mother's side Paternal Grandfather Paternal Grandmother Sister 1 1/2 sister Alive Sister 2 Alive Social History Tobacco Use Types Packs/Day Years Used Date Smoking Tobacco: Former Cigarettes 0.5 10 Q uit: 01/06/2010 Smokeless Tobacco: Never Tobacco Cessation:Counseling Given: Not Answered Alcohol Use Standard Drinks/Week Comments Yes 0 (1 standard drink = 0.6 oz pur e alcohol) Socially Alcohol Habits Answer Date Recorded How often do you have a drink containing alcohol ? Monthly or less 06/07/2020 How many drinks containing a lcohol do you have on a typical day when you are drinking? 1 or 2 06/07/2020 How often do you have six or more drinks on one occasion? Never 06/07/2020 Sex Assigned at Date Recorded Female 02/08/2022 7:23 AM E DT Job Start Date Occupation Industry Not on file Not on file Not on file Last Filed Vital Signs Vital Sign Reading Time Taken Comments Blood Pressure 133/92 03/11/2024 8:42 AM EDT Pulse 92 03/11/2024 8:42 AM EDT Temperature 36.8 ??C (98.3 ??F) 02/08/2024 9:02 AM ED T Respiratory Rate 16 03/11/2024 8:42 AM EDT Oxygen Saturation - - Inhaled Oxygen Concentration - - Weight 105.2 kg (232 lb) 03/11/2024 8:42 AM EDT Height 170.2 cm (5' 7 ) 02/08/2024 9:02 AM EDT Body Mass Index 36.34 02/08/2024 9:02 AM EDT Plan of Treatment Health Maintenance Due Date Last Done Comments Covid-19 Vaccine (2022-2 4 season) 2024 08/26/2021, 02/08/2021, 02/08/2021, Additional history exists BMI CHECK/ADVISE 09/28/2024 02/08/2024, 10/2023 (Completed), 09/17/2023, Additional history exists INFLUENZA (Season Ended) 2025 CERVICAL CANCER SCREENING 09/17/20262022, 02/09/2018, 07/31/2014 (External Completion), Additional history exists CHOLESTEROL SCREENING 07/13/2028 07/13/2023 , 12/07/2020, 11/10/2017, Additional history exists DTAP/TDAP/TD (3 - Td or Tdap) 10/29/2031, 10/07/2011, 07/28/2006 PNEUMOCOCCAL VACCINE FOR HIG H RISK PATIENTS (#1) 2050 Care Teams Casino Dealer Relationship Specialty Start Date End Date Perla Bernal DO PCP - General Internal Medicine 09/25/21
--- OUTSIDE RECORDS SUMMARY | 2025-02-01 15:20 | XMS_ITS | Encounter Summary ---
Author Organization [facility] Address [address] [place] [address] Care Team Providers Care Director Emergency Department Name Role Phone Doe Manzano MD Primary Care Provider Perla Angel DO Primary Care Provider Unavaila ble Encounter Details Date Type Department Care Team Description 06/08/2020 Pt. Non Urgent Medic al Question OBGYN - [facility] [address] [place] [address] Michael Love, [facility] [address] [place] [address] Social History Tobacco Use Types Packs/Day Years Used Date Smoking Tobacco: Former Cigarettes 0.5 10 Q uit: 01/06/2010 Smokeless Tobacco: Never Alcohol [...] file Not on file Not on file COVID-19 Exposure Response Date Recorded In the last month, have you been in contact with someone who was confirmed or suspected to have Coronavirus / COVID-19? No / Unsure 06/07/2020 9:29 AM EDT documented as of this encounter Miscellaneous Notes * Telephone Encounter - Kinjal Cordova R.N. - 06/08/2020 8:32 AM EDTFrom: Jossy Sutton To: Michael Love CNM Sent: 06/08/2020 8:30 AM EDT Subject: Results Morning - With my test results do they rule out BV as well? documented in this encounter Plan of Treatment Not on file documented as of this encounter Visit Diagnoses Not on filedocumented in this encounter Care Teams Director Emergency Department Relationship Specialty Start Date End Date Doe Manzano MD PCP - General Internal Medicine 10/05/17 09/24/21 Perla Bernal DO PCP - General Internal Medicine 09/25/21 documented as of this encounter
--- OUTSIDE RECORDS SUMMARY | 2025-02-01 15:20 | XMS_ITS | Encounter Summary ---
Author Organization [facility] Address [address] [place] [address] Care Team Providers Care Foreign Food Specialty Cook Name Role Phone Doe Manzano MD Primary Care Provider Perla Angel DO Primary Care Provider Unavaila ble Encounter Details Date Type Department Care Team Description 11/11/2017 Orders Only Medicine/Pediatrics - [address] [phone] Emeli Paniagua PA-C Leukocytosis, unspecified type (Primary Dx) Social History Tobacco Use Types Packs/Day Years Used Date Smoking Tobacco: Never Smokeless Tobacco: Never Alcohol Use Standard Drinks/Week [...] file Not on file Not on file documented as of this encounter Plan of Treatment Scheduled Orders Name Type Priority Associated Diagnoses Orde r Schedule AUTOMATED HEMOGRAM PLATELET COUNT Lab Routine Leukocytosis, unspecified type Expected: 11/11/2017, Expires: 11/11/2018 DIFFERENTIAL WBC COUNT Lab Routine Leukocytosis, unspecified type Expected: 11/11/2017, Expires: 11/11/2018 documented as of this encounter Visit Diagnoses Diagnosis Leukocytosis, unspecified type- Primary documented in this encounter Care Teams Foreign Food Specialty Cook Relationship Specialty Start Date End Date Doe Manzano MD PCP - General Internal Medicine 10/05/17 09/24/21 Perla Bernal DO PCP - General Internal Medicine 09/25/21 documented as of this encounter
--- OUTSIDE RECORDS SUMMARY | 2025-02-01 15:20 | XMS_ITS | Encounter Summary ---
Author Organization [facility] Address [address] [place] [address] Care Team Providers Care Railroad Repairer Name Role Phone Perla Bernal DO Primary Care Provider Jeanette perry Encounter Details Date Type Department Care Team Description 06/08/2023 Telephone Adult Medicine - [address] [address] Perla Bernal DO Social History Tobacco Use Types Packs/Day Years [...] on file documented as of this encounter Miscellaneous Notes * Telephone Encounter - Kacey Bender - 06/12/2023 2:33 PM EDT Pt booked 07/13 * Telephone Encounter - Kacey Bender - 06/09/2023 1:13 PM EDT Pt would like to know can she be seen by another careteam for this please advise * Telephone Encounter - Shari Lee M.A. - 06/09/2023 12:58 PM EDT Spoke to patient and message was given below. * Telephone Encounter - Perla Bernal DO - 06/08/2023 5:38 PM EDT Patient is unknown to me Before sending referral I have to examine the patient Patient has schedule appointment with [facility], advised to wait till then for referral to dermatology * Telephone Encounter - Ingrid Alford - 06/08/2023 11:34 AM EDT Pt would like a referral to [facility] for a mole on her shoulder documented in this encounter Plan of Treatment Not on file documented as of this encounter Visit Diagnoses Not on filedocumented in this encounter Care Teams Railroad Repairer Relationship Specialty Start Date End Date Perla Bernal DO PCP - General Internal Medicine 09/25/21 documented as of this encounter
--- OUTSIDE RECORDS SUMMARY | 2025-02-01 15:20 | XMS_ITS | Encounter Summary ---
Author Organization [facility] Address [address] [place] [address] Care Team Providers Care Healthcare Science Specialist Name Role Phone Doe Manzano MD Primary Care Provider Perla Angel DO Primary Care Provider Unavaila ble Reason for Visit * Reason Onset Date Comments REFERRAL 11/30/2018 Encounter Details Date Type Department Care Team Description 11/30/2018 Telephone Physiatry - [address] [address] Paul Vargas PA-C REFERRAL Social History Tobacco Use Types Packs/Day Years [...] encounter Miscellaneous Notes * Telephone Encounter - Paul Vargas PA-C - 11/30/2018 10:33 AM EST Thanks for FYI * Telephone Encounter - Arely Rosario - 11/30/2018 10:20 AM EST Patient was referred to the Podiatry department. Two phone calls were made and a letter was sent but patient has not responded. No further action will be taken with this referral. documented in this encounter Plan of Treatment Not on file documented as of this encounter Visit Diagnoses Not on filedocumented in this encounter Care Teams Healthcare Science Specialist Relationship Specialty Start Date End Date Doe Manzano MD PCP - General Internal Medicine 10/05/17 09/24/21 Perla Bernal DO PCP - General Internal Medicine 09/25/21 documented as of this encounter
--- OUTSIDE RECORDS SUMMARY | 2025-02-01 15:20 | XMS_ITS | Clinical Summary ---
Author Organization [facility] [address] [facility] Address [address] [place] [phone] Phone Care Team Providers Care Public Information Specialist Name Role Phone Zeny Mortensen Primary Care Provider [phone] Allergies No known active allergies Medications acetaminophen [...] PM EST Office Visit Obstetrics and Gynecology [address] [phone] Jordyn Hsu MD Lichen simplex chronicus (Primary [...] DX:Mood swings Migraine 10/09/2017 DX:Migraine Bipolar disorder ([facility]/HCC V2 4, [facility]/HCC V28) 12/15/2017 DX:Bipolar disorder ([facility]) Family History Medical History Relation Name Comments No Known Problems Brother 1/2 bro No Known Problems Daughter Alcohol abuse Father no contact Diabetes Mother Heart attack Mother colon polyp, DM , HTN, CAD, PVD ([place] age 60) Hypertension Mother Breast cancer Mother's [...] for your loved ones. For example, child abuse worker or elderly care for an older adult? [...] Care Team (Late st Contact Info) Description 02/03/2025 8:45 AM EDT Office Visit Obstetrics and Gynecology [address] [phone] Jordyn Hsu MD [address] [place], [place] Health Maintenance Due Date Last Done Comments Hepatitis B Vaccines (1 of 3 - 19+ 3-dose series) 2004 HIV Screening 09/06/2022 Hepatitis C Screening 09/06/2022 COVID-19 Vaccine (4 - 2023-2 5 season) 2024 08/26/2021, 02/08/2021, [...] Procedure Name Priority Date/Time Associated Diagnosis Comments HPV Routine 09/17/2023 LIPID PANEL Routine 07/13/2023 from Last 3 Months or Most Recently Relevant to Health Maintenance Results * Cervical Cancer Screening: HPV (09/17/2023) Pathologist [facility] Cervical Cancer Screening: HPV Negative, abstracted Historical Provider HEALTH MAINTENANCE Final Result * (ABNORMAL) Lipid panel (07/13/2023) Pathologist [facility] LDL/HDL Ratio 5(A) 0 - 4 Triglycerides 208(A) 0 - 150 mg/dL Cholesterol 187 0 - 200 mg/dL HDL 38(A) >=40 mg/dL LDL Cholesterol 108(A) 0 - 100 mg/dL Blood Venous blood specimen / Unknown Historical Provider LAB BLOOD ORDERABLES Teri l Result from Last 3 Months or Most Recently Relevant to Health Maintenance Insurance [facility] Care Teams Public Information Specialist Relationship Specialty Start Date End Date Zeny Mortensen PA [address] [place] [phone] PCP - General Physician Electronic Lab Technician 11/18/24
--- OUTSIDE RECORDS SUMMARY | 2025-02-01 15:20 | XMS_ITS | Encounter Summary ---
Author Organization [facility] Address [address] [place] [address] Care Team Providers Care Sulfate Drier Machine Operator Name Role Phone Perla Bernal DO Primary Care Provider Unavaila ble Reason for Visit * Reason Comments E-prescribe Rx Request Encounter Details Date Type Department Care Team Description 10/17/2021 Refill Adult Medicine [address] [address] Valerie Liu PA-C [address] [place] [address] E-prescribe Rx Request Social History Tobacco Use Types Packs/Day Years [...] Miscellaneous Notes * Telephone Encounter - Kacey Anderson - 10/17/2021 2:18 PM EST Refill on med list Last office visit : 11/22/20 Last time with PCP: 05/22/2020 Next office visit : 10/29/21 documented in this encounter Plan of Treatment Not on file documented as of this encounter Visit Diagnoses Diagnosis Herpes simplex Herpes simplex without mention of complication documented in this encounter Care Teams Sulfate Drier Machine Operator Relationship Specialty Start Date End Date Perla Bernal DO PCP - General Internal Medicine 09/25/21 documented as of this encounter
--- OUTSIDE RECORDS SUMMARY | 2025-02-01 15:20 | XMS_ITS | Encounter Summary ---
Author Organization [facility] Address [address] [place] [address] Care Team Providers Care Horticulture Supervisor Name Role Phone Doe Manzano MD Primary Care Provider Perla Angel DO Primary Care Provider Unavaila ble Encounter Details Date Type Department Care Team Description 06/05/2020 Pt. Non Urgent Medic al Question Adult Medicine - [place] [address] [place] [address] Paige Keane MD [address] [place] [address] Social History Tobacco Use Types Packs/Day Years [...] AM EDT documented as of this encounter Progress Notes * Celine Etienne L.P.N. - 06/05/2020 11:05 AM EDTFrom: Jossy Sutton To: Paige Keane MD Sent: 06/05/2020 10:45 AM EDT Subject: Yeast Infection treatment Morning. I was treated for a yeast infection about a week and a half ago. I'm still having some symptoms, only occasional itching in the area though. The discharge I was having seemed to go away within a few days but right now I can't tell if the discharge is still there as I'm just getting over myperiod. I wasn't sure if I should come in to be checked or not. There is no odor from the area thatI can tell, I am just wondering/concerned if this could be BV even without an odor present. documented in this encounter Plan of Treatment Not on file documented as of this encounter Visit Diagnoses Not on filedocumented in this encounter Care Teams Horticulture Supervisor Relationship Specialty Start Date End Date Doe Manzano MD PCP - General Internal Medicine 10/05/17 09/24/21 Perla Bernal DO PCP - General Internal Medicine 09/25/21 documented as of this encounter
--- OUTSIDE RECORDS SUMMARY | 2025-02-01 15:21 | XMS_ITS | Encounter Summary ---
Author Organization [facility] Address [address] [place] [address] Care Team Providers Care Wooden Fence Erector Name Role Phone Perla Bernal DO Primary Care Provider Kourtneya ble Encounter Details Date Type Department Care Team Description 10/21/2022 Pt. Non Urgent Medic al Question Adult Medicine - [place] [address] [place] [address] Valerie Liu PA-C [address] [place] [address] Social History Tobacco Use Types Packs/Day Years [...] Exposure Response Date Recorded In the last 10 days, have yo u been in contact with someone who was confirmed or suspected to have Coronavirus/COVID-19? No / Unsure 10/09/2022 11:13 AM EST documented as of this encounter Miscellaneous Notes * Telephone Encounter - Celine Etienne L.P.N. - 10/21/2022 8:39 AM EST From: Jossy Patel To: Aleah Liu Sent: 10/21/2022 8:17 AM EST Subject: Appt 10/22 Morning. I know we have an appt scheduled tomorrow and I believe it's just to discuss med status. Ijust wanted to let you know that vinnie has finally gotten me in with their DrKevon And is now taking careof my prescription for Lamictal and Ativan. I will be canceling my appt. documented in this encounter Plan of Treatment Not on file documented as of this encounter Visit Diagnoses Not on filedocumented in this encounter Care Teams Wooden Fence Erector Relationship Specialty Start Date End Date Perla Bernal DO PCP - General Internal Medicine 09/25/21 documented as of this encounter
== END 2025-02-01 15:34 | disposition home or self-care (01) ==
LOC: HO.HMCFM 14:06
PROVIDERS: PCP Physician Assistant; Visit Provider Physician Assistant
DX: I10 Essential (primary) hypertension (principal); R07.9 Chest pain, unspecified; R06.09 Other forms of dyspnea; E55.9 Vitamin D deficiency, unspecified

== ENCOUNTER → 2025-02-01 14:05 | Outpatient (BNVA) | payer BC, SELFPAY | PROVIDERS: PCP Physician Assistant; Visit Provider Physician Assistant | DX: I10 Essential (primary) hypertension (principal); R07.9 Chest pain, unspecified; R06.09 Other forms of dyspnea; E55.9 Vitamin D deficiency, unspecified; Z79.899 Other long term (current) drug therapy | CPT/HCPCS: 93005 ==

== ENCOUNTER 2025-03-06 07:37 | Outpatient (REF) | payer BC, SELFPAY ==
[2025-03-06 11:58] LABS: Alanine Aminotransferase 22 U/L (0-31); Albumin Level 4.4 g/dL (3.5-5.0); Alkaline Phosphatase 104 U/L (39-117); Anion Gap 9 (12-20); Aspartate Amino Transferase 27 U/L (5-31); Bilirubin Total 0.4 mg/dL (0.0-1.0); Blood Urea Nitrogen 13 mg/dL (9-16); Calcium 9.2 mg/dL (8.4-10.2); Carbon Dioxide 28 mmol/L (22-29); Chloride 106 mmol/L (96-108); Estimated Glomerular Filt Rate > 60; Glucose Fasting 95 mg/dL (60-99); Magnesium 1.9 mg/dL (1.6-2.6); Phosphorus 3.1 mg/dL (2.7-4.5); Potassium 3.7 mmol/L (3.3-5.1); Sodium 139 mmol/L (135-145)
[2025-03-06 12:12] LABS: Vitamin D 25-OH Total 101.7 ng/mL (>30)
== END 2025-03-06 07:38 | disposition home or self-care (01) ==
LOC: HO.WFDLDS 07:37
PROVIDERS: Visit Provider Physician Assistant
DX: E83.39 Other disorders of phosphorus metabolism (principal); R07.9 Chest pain, unspecified; R06.09 Other forms of dyspnea
CPT/HCPCS: 36415; 80053; 82306; 83735; 84100

== ENCOUNTER 2025-03-08 15:04 | Outpatient (AMB) | payer BC, SELFPAY ==
--- NOTE | 2025-03-08 15:12 | A.OFFPC_ITS ---
Vital Signs 03/08/25 15:13 Height 5 ft 8.11 in Weight 248 lb 2 oz BMI 37.6 BP 122/82 Blood Pressure Location Rt brachial Position Sitting Respiration 16 Pulse 104 H Pulse Source Pulse Oximeter Temp 98.1 F Temp Source Oral Pulse Oximetry (%) 98 Oxygen Delivery Method Room Air Intake Visit Reasons: bp and labs Intake Note: Follow up blood pressure. Cushion Padder Required: No Allergies No Known Allergies Allergy (Verified 03/08/25 15:12) Medication List - Last Reconciled 03/08/25 by Zeyn Mortensen PA-C cetirizine (Zyrtec) 10 mg PO DAILY PRN cholecalciferol (vitamin D3) 125 mcg PO DAILY lamotrigine 400 mg PO BID lorazepam 0.25 mg PO DAILY PRN metoprolol succinate ER 50 mg PO DAILY mometasone 0.1% 1 appl topical DAILY valacyclovir 500 mg PO DAILY Tobacco use date assessed: 03/08/25 Dental Screening Dental Screen Date: 01/12/25 HPI bp and labs HPI Details Pt is a 39 y/o female who presents today for a follow up CV: Bp today in the office is elevated at 122/82. She has been compliant with the metoprolol 50 mg. Denies any adverse effects of this medication. She is scheduled for cardiac testing next week. Psych: in 2005 she was dx with anxiety and depression and has been on lamotrigine and lorazepam since then. No hospitalizations. No SI/HI. GI: She has not yet heard from GI. No change in her irregular bowel movements.. Dielectric Tester: UTD with deneen Yanes hx: sister has melanoma, maternal grandfather lung ca, mother CT in her 60s, brother has htn PFSH Surgical History H/O removal of cyst Family History Mother HTN (hypertension) High serum cholesterol sulfate Diabetes Heart attack Maternal Grandmother HTN (hypertension) Diabetes Alcoholism Maternal Grandfather Lung cancer Alcoholism Other Melanoma Social History (Updated 03/08/25 @ 15:17 by Tawanna Cifuentes CMA) Housing: House Alcohol intake: current Patient Tobacco Use Status: Former Tobacco user (quit 2009) Cigarette Packs Per Day: 0.5 Years Smoked: 10 e-Cigarette/Vaping Use: Never Used Second Hand Smoke Exposure: No service: No Current occupational status: employed 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 Current occupational exposures/hazards: No Cognitive needs: No Hearing needs: No Vision needs: No Questionnaire Thrive Questionnaire Date Thrive assessed: 12/26/24 I am a: Patient What is your living situation today?: I have a steady place to live Within the past 12 months, did the food you bought not last and you didn't have the money to get more?: Never true Within the past 12 months, did you worry whether your food would run out before you got money to buy more?: Never true Do you have trouble paying for medicines?: No Do you have trouble getting transportation to medical appointments?: No Do you have trouble paying your heating and electricity bill?: No Do you have trouble taking care of your child, family member or friend?: No Do you have trouble with day-to-day activities such as bathing, preparing meals, shopping, managing finances, etc.?: No Are you currently unemployed and looking for a job?: No Are you interested in more education?: No Please select the resources that you would like help with: None Currently or been in a relationship where the following occur: No concerns reported THRIVE Score: 0 Physical exam (Primary Care) Vital Signs: Last Vital Signs Temp 98.1 F 03/08/25 15:13 Pulse 104 H 03/08/25 15:13 Resp 16 03/08/25 15:13 BP 122/82 03/08/25 15:13 Pulse Ox 98 03/08/25 15:13 Oxygen Delivery Method Room Air 03/08/25 15:13 BMI result Body Mass Index 37.6 Tobacco/Smoking Status: Tobacco use Status Tobacco use date assessed 03/08/25 03/08/25 15:17 Patient Tobacco Use Status Former Tobacco user (quit 03/08/25 15:17 2009) e-Cigarette/Vaping Use Never Used 03/08/25 15:17 Thrive Assessment: Date of Thrive Assessment Date Thrive assessed 12/26/24 03/08/25 15:17 Currently or been in a relationship where the following occur: No concerns reported Const Orientation/consciousness: patient oriented x3 HENMT Ears: hearing grossly normal bilaterally Neck Thyroid: Thyroid normal Lymphatic: no lymphadenopathy noted Resp Auscultation: clear to auscultation bilaterally Cardio Rate: regular rate Rhythm: regular rhythm Heart sounds: S1 normal heart sound present and S2 normal heart sound present GI Inspection: Yes normal to inspection Palpation (GI): Soft to palpation and Other GI palpation findings present (nontender, no cva tenderness) Auscultation: normoactive bowel sounds Rectal Exam - Female: deferred Skin General skin exam: no rashes or lesions noted Neuro General: patient oriented x3, gait normal and no focal motor deficits Coding Level of Care Code Est Pt Level 4 (67005) Complex EM visit Add On G2211 Diagnoses Primary hypertension I10 Hypertension type: primary hypertension Chest pain, exertional R07.9 Assessment & Plan Assessment & Plan (1) HTN (hypertension): Code(s): I10 - Essential (primary) hypertension Category: Medical Qualifiers: Hypertension type: primary hypertension Qualified Code(s): I10 - Essential (primary) hypertension Plan: WNL. Continue current regimen (2) Chest pain, exertional: Code(s): R07.9 - Chest pain, unspecified Category: Medical Plan: Workup is scheduled. We will follow up pending test results. She is currently asymptomatic.
[2025-03-08 15:13] VITALS: BP 122/82; PULSE 104; RESP 16; TEMP 36.7; O2SAT 98; BMI 37.6
--- OUTSIDE RECORDS SUMMARY | 2025-03-08 17:23 | XMS_ITS | Clinical Summary ---
Author Organization [facility] 444 [facility] Address [address] [place] [phone] Phone Care Team Providers Care Peoples[employer] Fscm Developer Name Role Phone Zeny Mortensen Primary Care Provider [phone] Allergies No known active allergies Medications acetaminophen [...] MOUTH DAILY 90 tablet 1 12/09/2024 Active metoprolol succinate (TOPROL-XL) 50 mg 24 hr tablet Take 1 tablet (50 mg total) by mouth 1 (one) time each day. 02/01/2025 Active cholecalciferol (VITAMIN D-3) 125 mcg (5,000 unit) capsule Take 1 capsule (5,000 Units total) by mouth 1 (one) time each day. 02/01/2025 Active Active Problems Problem Noted Date Diagnosed Date Hyperkeratosis 12/08/2023 Overview (08/29/2024): Last Assessment & Plan: Almost compeltely resolved. Assessment & Plan (02/03/2025 12:31 PM EDT): I offered to debride the areas on the labia minora again and to remove or biopsy the area anteriorly to ensure no evidence of precancer or cancer. She was open to this. She will continue mometasone going forward on these areas daily and Vaseline at least daily to keep softened. Vulvar Biopsy Reason for biopsy: Encounter Diagnosis Name Primary? Hyperkeratosis Yes The patient was consented for vulvar debridement and biopsy. Risks reviewed including bleeding, infection, and hematoma formation. She was placed in dorsal lithotomy position. The areas of planned treatment were prepped with betadine and infiltrated with a total of 2 cc of 0.5% Marcaine. The clitoral sanchez lesion was elevated and excised sharply. The site was closed with two figure of eight sutures of 3-0 Vicryl and hemostasis was noted. The other two areas were debrided until smooth. Zinc oxide was applied. The patient tolerated the procedure well. Verbal and written instructions were provided. Lichen simplex chronicus 12/08/2023 Overview (08/29/2024): Last [...] Vaseline or coconut oil, and follow the [facility] guidelines strictly. She agreed. Yeast culture sent to rule out as a cause for worsening sx. Will treat prn. Major depressive disorder, r ecurrent, moderate (CMS/HCC V24, CMS/HCC V28) 11/21/2020 Obesity (BMI 30-39.9) 01/06/2018 Migraine 10/09/2017 Generalized anxiety disorder 06/25/2017 Herpes simplex 04/27/2017 Overview (08/29/2024): Genital, 3 lifetime infections as of 10/2015 Mood swings 04/27/2017 Encounters Date Type Department Care Team Description 02/14/2025 Telephone Obstetrics and Gynecology - [address] [phone] Lorraine Navas MA Results 02/03/2025 8:45 AM EDT Office Visit Obstetrics and Gynecology - [address] [phone] Jordyn Hsu MD Hyperkeratosis (Primary Dx) from Last 3 Months Immunizations [...] DX:Mood swings Migraine 10/09/2017 DX:Migraine Bipolar disorder (CMS/HCC V2 4, CMS/HCC V28) 12/15/2017 DX:Bipolar disorder ([facility]) Family History Medical History Relation Name Comments No Known Problems Brother 1/2 bro No Known Problems Daughter Alcohol abuse Father no contact Diabetes Mother Heart attack Mother colon polyp, DM , HTN, CAD, PVD ([place] age 60) Hypertension Mother Breast cancer Mother's [...] side Paternal Grandfather Paternal Grandmother Sister 1 12 sister Alive Sister 2 Alive Social History Tobacco Use Types Packs/Day Years Used Date Smoking Tobacco: Former Cigarettes Q uit: 01/06/2010 Smokeless Tobacco: Never Tobacco [...] your loved ones. For example, child nutrition manager or elderly care for an older adult? [...] Sign Reading Time Taken Comments Blood Pressure 143/98 02/03/2025 8:53 AM EDT Pulse 70 02/03/2025 8:53 AM EDT Temperature - - Respiratory Rate 12 11/21/2024 1:57 PM EST Oxygen Saturation - - Inhaled Oxygen Concentration - - Weight 112 kg (248 lb) 02/03/2025 8:53 AM EDT Height 170.2 cm (5' 7 ) 11/21/2024 1:57 PM EST Body Mass Index 38.84 11/21/2024 1:57 PM EST Plan of Treatment Health Maintenance Due Date [...] Procedure Name Priority Date/Time Associated Diagnosis Comments TISSUE EXAM Routine 02/03/2025 12:28 PM EDT Hyperkeratosis HM HPV Routine 09/17/2023 LIPID PANEL Routine 07/13/2023 from Last 3 Months or Most Recently Relevant to Health Maintenance Results * Tissue exam (02/03/2025 12:28 PM EDT) Final Diagnosis Vulva, biopsy: Marked hyperkeratosis and hypergranulosis 4:18 PM EDT [facility] Comment Multiple deeper levels are examined and show the epidermis to be mildly acanthotic with wedge-shaped hypergranulosis and striking hyperkeratosis with focal parakeratin. No significant inflammation or dermal alteration is identified. No squamous intraepithelial lesion or differentiated TISHA is identified. The findings may be seen in areas of chronic irritation and lichen simplex chronicus. 4:18 PM EDT [facility] Clinical Information Hyperkeratosis L85.9 hyperkeratotic skin lesion, h/o lichen simplex chronicus 4:18 PM EDT [facility] Gross Description A. Vulva, hyperkeratotic skin lesion, h/o lichen simplex chronicus: Labeled vulva . Received in formalin is a 0.4 x 0.3 cm irregular lundberg-white possible skin fragment. The specimen is inked blue and submitted in toto between sponges in one cassette, one piece, multiple levels on one slide. RALPH 4:18 PM EDT [facility] Special Stains GMS stain with appropriate controls is negative for fungus. 4:18 PM EDT [facility] Disclaimer NOTE: The immunohistochemical tests and in situ hybridization tests were developed and their performance characteristics were determined by [facility]. They have not been cleared or approved by the U.S. Food and Drug Administration. The FDA has determined that such clearance or approval is not necessary. These tests are used for clinical purposes. They should not be regarded as investigational or for research. This laboratory is certified under the Clinical Laboratory Improvement Amendments of 1988 (CLIA) as qualified to perform high complexity clinical laboratory testing. (controls appropriate) Unless otherwise specified, all tissue is 10% NB formalin fixed and paraffin embedded. 4:18 PM EDT [facility] Tissue Vulval structure / Unknown Non-blood Collection / Unknown 02/03/2025 12:28 PM EDT 02/03/2025 12:28 PM EDT Jordyn Hsu MD LAB PATHOLOGY ORDERABLES Fi nal Result [facility] [address] [place] [address], * Cervical Cancer Screening: HPV (09/17/2023) Pathologist [facility] Cervical Cancer Screening: HPV Negative, abstracted Historical Provider HEALTH MAINTENANCE Final Result * (ABNORMAL) Lipid panel (07/13/2023) [facility] LDL/HDL Ratio 5(A) 0 - 4 Triglycerides 208(A) 0 - 150 mg/dL Cholesterol 187 0 - 200 mg/dL HDL 38(A) >=40 mg/dL LDL Cholesterol 108(A) 0 - 100 mg/dL Blood Venous blood specimen / Unknown Historical Provider LAB BLOOD ORDERABLES Teri l Result from Last 3 Months or Most Recently Relevant to Health Maintenance Insurance [facility] Care Teams [employer] Fscm Developer Relationship Specialty Start Date End Date Zeny Mortensen PA [address] [place] [address] PCP - General Physician Plastics And Composites Inspector 11/18/24
== END 2025-03-08 15:43 | disposition home or self-care (01) ==
LOC: HO.HMCFM 15:05
PROVIDERS: PCP Physician Assistant; Visit Provider Physician Assistant
DX: I10 Essential (primary) hypertension (principal); R07.9 Chest pain, unspecified

== ENCOUNTER → 2025-03-08 15:04 | Outpatient (BNVA) | payer BC, SELFPAY | PROVIDERS: PCP Physician Assistant; Visit Provider Physician Assistant | DX: Z13.89 Encounter for screening for other disorder (principal) ==

== ENCOUNTER → 2025-03-13 08:53 | Outpatient (REF) | payer BC, SELFPAY ==
--- NOTE | 2025-03-13 09:01 | CA_ITS ---
Transthoracic Echocardiogram Patient (Last, First, Middle): Jossy Patel, Gender: Female Date of : 1985 Age: 39 Procedure Date: 03/13/2025 Procedure Type: Transthoracic Echocardiogram Location: OP Height: 170. cm Weight: 108.86 kg BSA: 2.18 m2 Heart Rate: 70 bpm BP: 140 / 80 mmHg Rug Hooker Hand: MARIAM Referring MD: Zeny Mortensen PA-C Symptoms: R07.9 - Chest pain, unspecified Study Quality: Fair ECG Rhythm: Sinus Conclusions: - The left ventricular systolic function is normal. The calculated ejection fraction is 63% by biplane method. - No obvious valvular pathology seen on this study. Findings Left Ventricle Normal left ventricular cavity size. The left ventricular systolic function is normal. The calculated ejection fraction is 63% by biplane method. There is no evidence of regional wall motion abnormalities. Diastolic function is normal for age. Mild focal hypertrophy of the basal septum. Right Ventricle Normal right ventricular cavity size. There is low normal right ventricular systolic function. Atria Both atria are normal in size. Aortic Valve There is a normal trileaflet aortic valve. There is no aortic valve stenosis. There is no aortic valve regurgitation. Mitral Valve There is mild anterior mitral leaflet thickening. There is no mitral valve regurgitation. There is no mitral valve stenosis. Pulmonic Valve The pulmonic valve is likely normal. Tricuspid Valve There is trace tricuspid valve regurgitation. Tricuspid regurgitation envelope is inadequate for calculation of right ventricular systolic pressure. Great Vessels The asc aorta and aortic arch are normal in size. Venous The inferior vena cava is mildly dilated and collapses greater than 50% with inspiration. Pericardium/Pleural There is no evidence of pericardial effusion. Prior Study Comparison No prior study available for comparison. Recommendations, Care & Conclusions No obvious valvular pathology seen on this study. Measurements 2D Linear Measurements IVSd: 0.96 0.6-0.9/0.6-1.0 cm LVIDd: 3.88 3.9-5.3/4.2-5.9 cm LVIDd Index: 1.78 2.4-3.2/2.2-3.1 cm/m2 LVIDs: 2.40 2.0-3.6 cm LVPWd: 1.02 0.7-1.1 cm LA Diam: 3.50 2.7-3.8/3.0-4.0 cm LAIDs Index: 1.61 1.5-2.3 cm/m2 LV Mass: 148.10 67-162/88-224 g LV Mass Index: 67.94 43-95/49-115 g/m2 LVOT Diam: 2.10 3.0+(-)1.3 cm 2D Systolic Function EF 4C: 63.50 >55% EF 2C: 61.80 >55% EF BiP: 62.50 >55% Mitral Valve MV Pk E: 0.82 MV PK A: 0.65 MV Decel Time: 255.00 E/A: 1.30 E'Lateral: 9.79 E'Medial: 6.64 E/E' Med: 12.40 E/E' Lat: 8.40 PHT: 75.00 MVA PHT: 2.93 Decel Plumas: 3.23 Aortic Valve AoV Pk Xavier: 1.11 AoV Mn Xavier: 0.84 AoV VTI: 0.21 AoV Pk Grad: 5.00 Aov Mn Grad: 3.00 JESSICA Cont.VTI: 2.87 LVOT LVOT Pk Xavier: 1.06 LVOT Mn Xavier: 0.63 LVOT VTI: 0.17 LVOT Pk Grad: 4.00 LVOT Mn Grad: 2.00 LVOT Diam: 2.10 LVOT Area: 3.46 Diastolic Function MV Pk E: 0.82 MV Pk A: 0.65 E/A: 1.30 E'Medial: 6.64 E/E' Med: 12.40 E' Laterial: 9.79 E/E' Lat: 8.40 Right Ventricle TAPSE (mm): 17.10 TVS' Xavier: 10.30 Tricuspid Valve RA Press: 8.00 Great Vessels Aorta Sinus of Valsalva: 3.10 2.0-3.5 cm Ao Asc: 3.10 2.1-3.4 cm Ao Arch: 2.30 Pulmonary Valve PV Pk Xavier: 0.84 Peak PV Grad: 3.00 Updated in Other Vendor System with Status of Final Mohinder Shaw MD electronically signed on 03/13/2025 12:29:00 PM with status of Final
--- OUTSIDE RECORDS SUMMARY | 2025-03-13 09:19 | XMS_ITS | Clinical Summary ---
Author Organization [facility] 444 [facility] Address [address] [place] [phone] Phone Care Team Providers Care Flexographic Press Plate Setter Name Role Phone Zeny Mortensen Primary Care Provider [phone] Allergies No known active allergies Medications acetaminophen [...] Vaseline or coconut oil, and follow the [facility] guidelines strictly. She agreed. Yeast culture sent [...] Description 02/14/2025 Telephone Obstetrics and Gynecology - [address] [phone] Lorraine Navas MA Results 02/03/2025 8:45 AM EDT Office Visit Obstetrics and Gynecology - [address] [phone] Jordyn Hsu MD Hyperkeratosis (Primary Dx) from [...] V2 4, CMS/HCC V28) 12/15/2017 DX:Bipolar disorder ([facility]) Family History Medical History Relation Name Comments No Known Problems Brother 1/2 bro No Known Problems Daughter Alcohol abuse Father no contact Diabetes Mother Heart attack Mother colon polyp, DM , HTN, CAD, PVD ([place] age 60) Hypertension Mother Breast cancer Mother's [...] for your loved ones. For example, child adolescent psychiatrist or elderly care for an older adult? [...] Marked hyperkeratosis and hypergranulosis 4:18 PM EDT [facility] Comment Multiple deeper levels are examined and show the epidermis to be mildly acanthotic with wedge-shaped hypergranulosis and striking hyperkeratosis with focal parakeratin. No significant inflammation or dermal alteration is identified. No squamous intraepithelial lesion or differentiated TISHA is identified. The findings may be seen in areas of chronic irritation and lichen simplex chronicus. 4:18 PM EDT [facility] Clinical Information Hyperkeratosis L85.9 hyperkeratotic skin lesion, h/o lichen simplex chronicus 4:18 PM EDT [facility] Gross Description A. Vulva, hyperkeratotic skin lesion, h/o lichen simplex chronicus: Labeled vulva . Received in formalin is a 0.4 x 0.3 cm irregular lundberg-white possible skin fragment. The specimen is inked blue and submitted in toto between sponges in one cassette, one piece, multiple levels on one slide. RALPH 4:18 PM EDT [facility] Special Stains GMS stain with appropriate controls is negative for fungus. 4:18 PM EDT [facility] Disclaimer NOTE: The immunohistochemical tests and in situ hybridization tests were developed and their performance characteristics were determined by [facility]. They have not been cleared [...] fixed and paraffin embedded. 4:18 PM EDT [facility] Tissue Vulval structure / Unknown Non-blood Collection / Unknown 02/03/2025 12:28 PM EDT 02/03/2025 12:28 PM EDT Jordyn Hsu MD LAB PATHOLOGY ORDERABLES Fi nal Result [facility] [address] [place] [address], * Cervical Cancer Screening: HPV (09/17/2023) Pathologist [facility] Cervical Cancer Screening: HPV Negative, abstracted Historical Provider HEALTH MAINTENANCE Final Result * (ABNORMAL) Lipid panel (07/13/2023) [facility] LDL/HDL Ratio 5(A) 0 - 4 Triglycerides 208(A) 0 - 150 mg/dL Cholesterol 187 0 - 200 mg/dL HDL 38(A) >=40 mg/dL LDL Cholesterol 108(A) 0 - 100 mg/dL Blood Venous blood specimen / Unknown Historical Provider LAB BLOOD ORDERABLES Teri l Result from Last 3 Months or Most Recently Relevant to Health Maintenance Insurance [facility] Care Teams Flexographic Press Plate Setter Relationship Specialty Start Date End Date Zeny Mortensen PA [address] [place] [address] PCP - General Physician Hog Driver 11/18/24
== END ==
LOC: HO.CARD 08:53
PROVIDERS: PCP Physician Assistant; Visit Provider Physician Assistant
DX: R07.9 Chest pain, unspecified (principal); R06.09 Other forms of dyspnea; I10 Essential (primary) hypertension
CPT/HCPCS: 93306

== ENCOUNTER → 2025-03-13 09:01 | Outpatient (BNV) | payer BC, SELFPAY | PROVIDERS: PCP Physician Assistant; Visit Provider Internal Medicine | DX: R07.9 Chest pain, unspecified (principal) | CPT/HCPCS: 93306 ==

== ENCOUNTER → 2025-04-24 07:50 | Outpatient (REF) | payer BC, SELFPAY ==
--- NOTE | ~2025-04-24 | NM_ITS ---
EXERCISE MYOCARDIAL PERFUSION STUDY INDICATION: Chest pain to evaluate for myocardial ischemia TECHNIQUE: The patient was brought in for an exercise perfusion study on 04/24/2025. Patient performed exercise as per Chavez protocol and was injected 40 mCi of sestamibi once target heart rate was achieved. Images were obtained using the SPECT gamma camera interlaced with the gating device. Images were obtained in supine position. Resting perfusion study was performed on 04/25/2025. Patient was administered 40 mCi of sestamibi intravenously at rest. Images were then obtained in supine position. Images obtained without without CT attenuation. Total DLP 133 mGy-cm. Images were processed with the software and compared side to side in short axis, horizontal long axis and vertical long axis views. FINDINGS: Raw images were reviewed The stress perfusion study showed nonattenuated images show mildly reduced uptake in the distal and mid anterior as well as the inferolateral wall of the LV myocardium. Remainder of the LV myocardium show normal uptake. Attenuated corrected images show normal uptake of radiotracer in all segments of the LV myocardium.. The gated study shows normal LV systolic function with calculated LVEF of 68%. LV cavity is normal in size. The gated study shows normal systolic wall thickening and contraction of segments. Resting study shows both attenuated as well as nonattenuated corrected images show normal uptake of radiotracer in all segments of the LV myocardium. Gating at rest reveals normal systolic wall motion with ejection fraction at 59%. The findings are consistent with discrepant findings are nonattenuated versus attenuated corrected images. Findings are most suggestive of shifting breast attenuation artifact from nonattenuated images. Likely normal myocardial perfusion. NM/NM cardiolite stress test IMPRESSION: 1. Myocardial perfusion imaging study shows normal myocardial perfusion. 2. Gated LVEF is 68%. 3. Transient ischemic dilatation not present. EKG revealed negative for ischemia. Electronically signed by: Jamel Frye MD 04/25/2025 04:14 PM EDT
--- OUTSIDE RECORDS SUMMARY | 2025-04-24 07:53 | XMS_ITS | Clinical Summary ---
Author Organization [facility] 444 [facility] Address [address] [place] [phone] Phone Care Team Providers Care Manager Wastewater Name Role Phone Zeny Mortensen Primary Care Provider [phone] Allergies No known active allergies Medications acetaminophen [...] Vaseline or coconut oil, and follow the [facility] guidelines strictly. She agreed. Yeast [...] Description 02/14/2025 Telephone Obstetrics and Gynecology - [address] [phone] Lorraine Navas MA Results 02/03/2025 8:45 AM EDT Office Visit Obstetrics and Gynecology - [address] [phone] Jordyn Hsu MD Hyperkeratosis (Primary Dx) from [...] V2 4, CMS/HCC V28) 12/15/2017 DX:Bipolar disorder ([facility]) Family History Medical History Relation Name Comments No Known Problems Brother 1/2 bro No Known Problems Daughter Alcohol abuse Father no contact Diabetes Mother Heart attack Mother colon polyp, DM , HTN, CAD, PVD ([place] age 60) Hypertension Mother Breast cancer Mother's [...] care for your loved ones. For example, attendant children's institution or elderly care for an older adult? [...] season) 2024 08/26/2021, 02/08/2021, 01/11/2021 Influenza Vaccine (#1) 2025 Social [employer] of Health Screening 10/26/2025 10/26/2024 Cholesterol Screening (Lipid Panel) 07/13/2028 07/13/2023 Cervical Cancer Screening: HPV 09/17/2028 09/17/2023 DTaP,Tdap,and Td Vaccines (4 - Td or Tdap) 10/29/2031 10/29/2021, 10/07/2011, 07/28/2006 HPV Vaccines Completed 01/26/2007, 10/09/2006, 07/28/2006 Depression Screening Completed 10/26/2024 HIB Vaccines Aged Out No longer eligi [...] 5 Years) and At-Risk Patients (6 to 49 Years) Aged Out No longer eligible b [...] Marked hyperkeratosis and hypergranulosis 4:[address] [facility] Comment Multiple deeper levels are examined and show the epidermis to be mildly acanthotic with wedge-shaped hypergranulosis and striking hyperkeratosis with focal parakeratin. No significant inflammation or dermal alteration is identified. No squamous intraepithelial lesion or differentiated TISHA is identified. The findings may be seen in areas of chronic irritation and lichen simplex chronicus. 4:[address] [facility] Clinical Information Hyperkeratosis L85.9 hyperkeratotic skin lesion, h/o lichen simplex chronicus 4:[address] [facility] Gross Description A. Vulva, hyperkeratotic skin lesion, h/o lichen simplex chronicus: Labeled vulva . Received in formalin is a 0.4 x 0.3 cm irregular lundberg-white possible skin fragment. The specimen is inked blue and submitted in toto between sponges in one cassette, one piece, multiple levels on one slide. RALPH 5 4:[address] [facility] Special Stains GMS stain with appropriate controls is negative for fungus. 4:[address] [facility] Disclaimer NOTE: The immunohistochemical tests and in situ hybridization tests were developed and their performance characteristics were determined by [facility]. They have not been cleared [...] fixed and paraffin embedded. 4:[address] [facility] Tissue Vulval structure / Unknown Non-blood Collection / Unknown 02/03/2025 12:28 PM EDT 02/03/2025 12:28 PM EDT Jordyn Hsu MD LAB PATHOLOGY ORDERABLES Fi nal Result [facility] [address] [place] [address], * Cervical Cancer Screening: HPV (09/17/2023) Pathologist [facility] Cervical Cancer Screening: HPV Negative, abstracted Historical Provider HEALTH MAINTENANCE Final Result * (ABNORMAL) Lipid panel (07/13/2023) [facility] LDL/HDL Ratio 5(A) 0 - 4 Triglycerides 208(A) 0 - 150 mg/dL Cholesterol 187 0 - 200 mg/dL HDL 38(A) >=40 mg/dL LDL Cholesterol 108(A) 0 - 100 mg/dL Blood Venous blood specimen / Unknown Historical Provider LAB BLOOD ORDERABLES Teri l Result from Last 3 Months or Most Recently Relevant to Health Maintenance Insurance [facility] Care Teams Manager Wastewater Relationship Specialty Start Date End Date Zeny Mortensen PA [address] [place] [address] PCP - General Physician Director Electrical Engineering 11/18/24
--- NOTE | 2025-04-24 08:00 | CA_ITS ---
Acquisition Time: 2025-04-24 08:05:10 Total Exercise Time: 00:05:49 Test Indications: Dyspnea CP,Fatigue Medications: METOPROLOL CETERIZINE LAMOTRIGNE Protocol: JUANY Max HR: 169 BPM 93% of Pred: 181 BPM Max BP: 220/90 mmHG Max Work Load: 7.0 METS Exercise stress test with exercise 5 mins 49 secs of Juany Protocol, achieving 93% MPHR, with reports of SOB, no chest pain, without any arrythmias, with hypertensive response to exercise- max BP 220/90. Without any EKG changes meeting criteria for ischemia. In recovery, pt's breathing returned to baseline. BP improved to baseline. Nuclear images pending. Test reviewed with Dr. Frye. Referred By: Zeny Mortensen Electronically Signed By: Reese Walton
== END ==
LOC: HO.CARD 07:50
PROVIDERS: PCP Physician Assistant; Visit Provider Physician Assistant
DX: R07.9 Chest pain, unspecified (principal); I10 Essential (primary) hypertension; R06.09 Other forms of dyspnea
CPT/HCPCS: 78452; 93017; A9500

== ENCOUNTER → 2025-04-24 08:00 | Outpatient (BNV) | payer BC, SELFPAY | PROVIDERS: PCP Physician Assistant | DX: R06.02 Shortness of breath (principal) | CPT/HCPCS: 78452; 93016; 93018 ==

== ENCOUNTER 2025-06-14 10:48 | Outpatient (AMB) | payer BC, SELFPAY ==
--- NOTE | 2025-06-14 10:51 | A.OFFVIS_ITS ---
Vital Signs 06/14/25 10:53 Height 5 ft 8.11 in Weight 244 lb 11.41 oz BMI 37.1 BP 146/83 H Blood Pressure Location Lt brachial Position Sitting Pulse 79 Intake Visit Reasons: Diarrhea Intake Note: Jossy presents in the office as a new patient for diarrhea. CC: On and off again diarrhea. Reflux at times and states when she is full. Cramping when she has to have a BM. Recruiting Consultant Required: No Allergies No Known Allergies Allergy (Verified 06/14/25 10:53) HPI Comments Details: 39 y.o F with PMH of HTN, anxiety who is here for fluctuating BMs. Reports even as a kid had a nervous stomach . Now more noticeable in the last 10 years. Has abd cramping with urge to defecate at least 1-2 times a week cramping goes away after defecating. No N/V, no blood in stool. No fam hx of IBD or CRC. Labs reviewed. Laboratory Tests 01/17/25 01/17/25 03/06/25 07:56 16:45 07:39 AST 24 ALT 21 22 25-OH Vitamin D Total 18 L Stool Calprotectin 14 IgA 209 Endomysial IgA Ab Negative Tiss Transglutamin IgG <1.0 PFSH Surgical History H/O removal of cyst Family History Mother HTN (hypertension) High serum cholesterol sulfate Diabetes Heart attack Maternal Grandmother HTN (hypertension) Diabetes Alcoholism Maternal Grandfather Lung cancer Alcoholism Other Melanoma Social History Housing: House Alcohol intake: current Patient Tobacco Use Status: Former Tobacco user (quit 2009) Cigarette Packs Per Day: 0.5 Years Smoked: 10 e-Cigarette/Vaping Use: Never Used Second Hand Smoke Exposure: No service: No Current occupational status: employed 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 Current occupational exposures/hazards: No Cognitive needs: No Hearing needs: No Vision needs: No Review of Systems Const All systems reviewed & are unremarkable except as noted in HPI and below Physical Exam Exam Exam: No apparent distress Nonicteric Abdomen soft, nondistended Alert and oriented x3, normal gait Vital Signs: Last Vital Signs Pulse 79 0917/25 10:53 BP 146/83 H 06/14/25 10:53 BMI result Body Mass Index 37.1 Assessment & Plan Assessment & Plan (1) Irritable bowel syndrome with diarrhea: Code(s): K58.0 - Irritable bowel syndrome with diarrhea Category: Medical (2) BMI 39.0-39.9,adult: Code(s): Z68.39 - Body mass index [BMI] 39.0-39.9, adult Category: Medical (3) Obesity (BMI 30-39.9): Code(s): E66.9 - Obesity, unspecified Category: Medical Plan Overall clinical presentation consistent with interval bowel syndrome with diarrhea predominance. No red flags to warrant emergent endoscopic workup at this time. Labs reviewed, and negative for celiac, IBD less likely as well. Thyroid function normal. Plan: -low FODMAP diet during flare ups -can take Imodium as needed for more than 3 loose bowel movements per day -incorporate fiber in the diet -increase physical activity to at least 150 minutes burden -follow-up in 3 months to review response, can review addition of TCAs depending on global sx burden Coding Level of Care Code New Pt Level 4 (41999) Diagnoses Irritable bowel syndrome with diarrhea K58.0 BMI 39.0-39.9,adult Z68.39 Obesity (BMI 30-39.9) E66.9
[2025-06-14 10:53] VITALS: BP 146/83; PULSE 79; BMI 37.1
--- OUTSIDE RECORDS SUMMARY | 2025-06-14 13:47 | XMS_ITS | Clinical Summary ---
Author Organization [facility] [address] [facility] Address [address] [place] [phone] Phone Care Team Providers Care Stapler Hand Name Role Phone Zeny Mortensen Primary Care Provider [phone] Allergies No known active allergies Medications acetaminophen [...] Vaseline or coconut oil, and follow the [facility] guidelines strictly. She agreed. Yeast culture sent to rule out as a cause for worsening sx. Will treat prn. Major depressive disorder, r ecurrent, moderate ([facility] V24, [facility] V28) 11/21/2020 Obesity (BMI 30-39.9) 01/06/2018 Migraine 10/09/2017 Generalized anxiety disorder 06/25/2017 Herpes simplex 04/27/2017 Overview (08/29/2024): Genital, 3 lifetime infections as of 10/2015 Mood swings 04/27/2017 Immunizations Name Administration Dates Next Due HPV, [...] DX:Mood swings Migraine 10/09/2017 DX:Migraine Bipolar disorder ([facility] V2 4, [facility] V28) 12/15/2017 DX:Bipolar disorder (HCC) Family History Medical History Relation Name Comments No Known Problems Brother 1/2 bro No Known Problems Daughter Alcohol abuse Father no contact Diabetes Mother Heart attack Mother colon polyp, DM , HTN, CAD, PVD ([place] age 60) Hypertension Mother Breast cancer Mother's [...] ed Within the last 3 months, ho funmilayo many times did you visit the emergency [...] for your loved ones. For example, child neurologist or elderly care for an older adult? [...] C Screening 09/06/2022 COVID-19 Vaccine (4 - 2024-2 6 season) 2025 08/26/2021, 02/08/2021, 01/11/2021 Influenza Vaccine (#1) 2025 [...] Cancer Screening: HPV (09/17/2023) Pathologist [facility] Cervical Cancer Screening: HPV Negative, abstracted Historical Provider MD HEALTH MAINTENANCE Final Result * (ABNORMAL) Lipid panel (07/13/2023) LDL/HDL Ratio 5(A) 0 - 4 Triglycerides 208(A) 0 - 150 mg/dL Cholesterol 187 0 - 200 mg/dL HDL 38(A) >=40 mg/dL LDL Cholesterol 108(A) 0 - 100 mg/dL Blood Venous blood specimen / Unknown Historical Provider LAB BLOOD ORDERABLES Teri l Result from Last 3 Months or Most Recently Relevant to Health Maintenance Insurance [employer] Care Teams Stapler Hand Relationship Specialty Start Date End Date Zeny Mortensen PA [address] [place] [id number] PCP - General Physician Lens Cutter 11/18/24
== END 2025-06-14 11:29 | disposition home or self-care (01) ==
LOC: HO.HGI 10:49
PROVIDERS: PCP Physician Assistant; Visit Provider Internal Medicine
DX: K58.0 Irritable bowel syndrome with diarrhea (principal); Z68.39 Body mass index [BMI] 39.0-39.9, adult; E66.9 Obesity, unspecified
CPT/HCPCS: 99204

== ENCOUNTER 2025-08-31 12:07 | Outpatient (AMB) | payer BC, SELFPAY ==
--- NOTE | 2025-08-31 12:26 | MHC.PC.OV ---
Vital Signs 08/31/25 12:29 Height 5 ft 8.11 in Weight 243 lb 8 oz BMI 36.9 BP 124/82 Blood Pressure Location Lt brachial Position Sitting Respiration 14 Pulse 82 Pulse Source Pulse Oximeter Temp 98.2 F Temp Source Oral Pulse Oximetry (%) 98 Oxygen Delivery Method Room Air Intake Visit Reasons: cpe Intake Note: Physical. Believes she has has yeast infection in the armpits from antibiotic. 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: No Allergies No Known Allergies Allergy (Verified 06/14/25 10:53) Medication List - Last Reconciled 08/31/25 by Zeny Mortensen PA-C amoxicillin 500 mg PO TID cetirizine (Zyrtec) 10 mg PO DAILY PRN cholecalciferol (vitamin D3) 125 mcg PO DAILY lamotrigine 400 mg PO BID lorazepam 0.25 mg PO DAILY PRN metoprolol succinate ER 50 mg PO DAILY mometasone 0.1% 1 appl topical DAILY valacyclovir 500 mg PO DAILY Tobacco use date assessed: 08/31/25 Dental Screening Dental Screen Date: 08/31/25 Did you have a dental visit in the last 12 months?: Yes Did you have a dental problem in the last 6 months where you did not have access to dental care?: No Was dental information given to patient?: Patient has dentist HPI cpe HPI Details Pt is a 39 y/o female who presents today for a cpe CV: Bp today in the office is elevated at 122/82. She has been compliant with the metoprolol 50 mg. Psych: in 2005 she was dx with anxiety and depression and has been on lamotrigine and lorazepam since then. No hospitalizations. No SI/HI. GI: Following with gi for constipation/diarrhea. did a diet change and it is a lot better. 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 Recently has gone to the dentist numerous times and had a tooth extracted and has been put on antibiotics twice and has recurrent yeast infection. She used Monistat initially which was effective but is now symptomatic again with going on a 2nd round of antibiotics. She also reports having a yeast infection in her axilla. Mammo: due starting in November Fam hx: sister has melanoma, maternal grandfather lung ca, mother [place] in her 60s, brother has htn PFSH Surgical History H/O removal of cyst Family History Mother HTN (hypertension) High serum cholesterol sulfate Diabetes Heart attack Maternal Grandmother HTN (hypertension) Diabetes Alcoholism Maternal Grandfather Lung cancer Alcoholism Other Melanoma Social History Housing: House Alcohol intake: current Patient Tobacco Use Status: Former Tobacco user (quit 2009) Cigarette Packs Per Day: 0.5 Years Smoked: 10 e-Cigarette/Vaping Use: Never Used Second Hand Smoke Exposure: No service: No Current occupational status: employed 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 Current occupational exposures/hazards: No Cognitive needs: No Hearing needs: No Vision needs: No Questionnaire Thrive Questionnaire Date Thrive assessed: 12/26/24 I am a: Patient What is your living situation today?: I have a steady place to live Within the past 12 months, did the food you bought not last and you didn't have the money to get more?: Never true Within the past 12 months, did you worry whether your food would run out before you got money to buy more?: Never true Do you have trouble paying for medicines?: No Do you have trouble getting transportation to medical appointments?: No Do you have trouble paying your heating and electricity bill?: No Do you have trouble taking care of your child, family member or friend?: No Do you have trouble with day-to-day activities such as bathing, preparing meals, shopping, managing finances, etc.?: No Are you currently unemployed and looking for a job?: No Are you interested in more education?: No Please select the resources that you would like help with: None Currently or been in a relationship where the following occur: No concerns reported THRIVE Score: 0 AUDIT C Alcohol Use Questionnaire (AUDIT-C) 1. How often do you have a drink containing alcohol?: Monthly or less 2. How many drinks containing alcohol do you have on a typical day when you are drinking?: 1 or 2 3. How often do you have six or more drinks on one occasion?: Never Total Score: 1 Physical exam (Primary Care) Vital Signs: Last Vital Signs Temp 98.2 F 08/31/25 12:29 Pulse 82 08/31/25 12:29 Resp 14 08/31/25 12:29 BP 124/82 08/31/25 12:29 Pulse Ox 98 08/31/25 12:29 Oxygen Delivery Method Room Air 08/31/25 12:29 BMI result Body Mass Index 36.9 Tobacco/Smoking Status: Tobacco use Status Tobacco use date assessed 08/31/25 08/31/25 12:33 Patient Tobacco Use Status Former Tobacco user (quit 08/31/25 12:33 2009) e-Cigarette/Vaping Use Never Used 08/31/25 12:33 Thrive Assessment: Date of Thrive Assessment Date Thrive assessed 12/26/24 08/31/25 12:33 Currently or been in a relationship where the following occur: No concerns reported Const Orientation/consciousness: patient oriented x3 HENMT Ears: hearing grossly normal bilaterally and TM's normal bilaterally General nose exam: No nasal polyps present Face and sinus: Yes sinuses nontender Mouth: Normal oral and palatal mucosa present Eyes Pupils: Equal, round and reactive pupils present EOM: EOMs intact bilaterally Neck Neck: Yes full ROM and Yes no lymphadenopathy Thyroid: Thyroid normal Chest Chest palpation & inspection: normal inspection of the chest Resp Auscultation: clear to auscultation bilaterally Cardio Rate: regular rate Rhythm: regular rhythm Heart sounds: S1 normal heart sound present and S2 normal heart sound present Peripheral pulses: Peripheral pulses 2+ throughout GI Other: Soft, nontender Auscultation: normal bowel sounds Rectal Exam - Female: deferred General: Yes no CVA tenderness Back/Spine/Pelvis Other: Nontender Back: no CVA tenderness Skin Other: The skin is erythematous and blanching in the axilla and circular. Neuro General: patient oriented x3, gait normal, CN's II-XI intact bilaterally and deep tendon reflexes 2+ bilaterally Cranial nerves: Yes Equal, round and reactive pupils present Motor exam (neuro): 5/5 motor strength present throughout Sensory Exam: double simultaneous stimulation for sensation normal Coordination: [id number] test normal and Romberg test negative Extrem General: Yes normal to inspection and Yes full ROM Psych Affect: normal affect Attitude: cooperative Thought process: Normal thought process present Thought content: Normal thought content present Insight: Good insight present (Psych) Judgement: Good judgement present (Psych) Results Reviewed Results Reviewed: Laboratory Tests 12/19/24 01/17/25 03/06/25 10:16 07:56 07:39 Sodium 139 Potassium 3.7 Chloride 106 Carbon Dioxide 28 Anion Gap 9 L BUN 13 Creatinine 0.96 Estimated GFR > 60 Fasting Glucose 95 Calcium 9.2 Phosphorus 3.1 Magnesium 1.9 Total Bilirubin 0.4 AST 27 ALT 22 Alkaline Phosphatase 104 Triglycerides 130 Cholesterol 194 LDL Cholesterol, Calc 122 H HDL Cholesterol 46 25-OH Vitamin D Total 101.7 TSH 2.56 Coding Level of Care Code Est Pt Prev Care 18-39y(47365) Diagnoses Routine general medical examination at a health care facility Z00.00 Primary hypertension I10 Hypertension type: primary hypertension Candidiasis of vagina B37.31 Candidiasis of skin B37.2 Assessment & Plan Assessment & Plan (1) Routine general medical examination at a health care facility: Code(s): Z00.00 - Encounter for general adult medical examination without abnormal findings Plan: Health maintenance reviewed Labs ordered Mammogram ordered to start in November She will let me know if anything worsens or changes. Patient understands and agrees with the plan. (2) HTN (hypertension): Code(s): I10 - Essential (primary) hypertension Category: Medical Qualifiers: Hypertension type: primary hypertension Qualified Code(s): I10 - Essential (primary) hypertension Plan: WNL. Continue current regimen (3) Candidiasis of vagina: Code(s): B37.31 - Acute candidiasis of vulva and vagina Plan: We will treat with Diflucan (4) Candidiasis of skin: Code(s): B37.2 - Candidiasis of skin and nail Plan: Started Diflucan Advised to try nystatin cream Orders: Orders Comprehensive [place]. Panel Fast Today B37.2 - Candidiasis of skin and nail, B37.31 - Acute candidiasis of vulva and vagina, I10 - Essential (primary) hypertension, Z00.00 - Encounter for general adult medical examination without abnormal findings, Z68.39 - Body mass index [BMI] 39.0-39.9, adult UA CC w/rflx Micro + Cult Today B37.2 - Candidiasis of skin and nail, B37.31 - Acute candidiasis of vulva and vagina, I10 - Essential (primary) hypertension, R30.0 - Dysuria, Z00.00 - Encounter for general adult medical examination without abnormal findings, Z68.39 - Body mass index [BMI] 39.0-39.9, adult MM screening mammo BI Today Z12.31 - Encounter for screening mammogram for malignant neoplasm of breast Complete Blood Count Auto Diff Today B37.2 - Candidiasis of skin and nail, B37.31 - Acute candidiasis of vulva and vagina, I10 - Essential (primary) hypertension, Z00.00 - Encounter for general adult medical examination without abnormal findings, Z68.39 - Body mass index [BMI] 39.0-39.9, adult Lipid Panel Today B37.2 - Candidiasis of skin and nail, B37.31 - Acute candidiasis of vulva and vagina, I10 - Essential (primary) hypertension, Z00.00 - Encounter for general adult medical examination without abnormal findings, Z68.39 - Body mass index [BMI] 39.0-39.9, adult TSH reflex Free T4 Today B37.2 - Candidiasis of skin and nail, B37.31 - Acute candidiasis of vulva and vagina, I10 - Essential (primary) hypertension, Z00.00 - Encounter for general adult medical examination without abnormal findings, Z68.39 - Body mass index [BMI] 39.0-39.9, adult Medications: New valacyclovir 500 mg PO DAILY 90 tabs 3RF fluconazole 150 mg PO Q3D 3 tabs 0RF 9 days nystatin 1 appl topical BID 30 grams 0RF
[2025-08-31 12:29] VITALS: BP 124/82; PULSE 82; RESP 14; TEMP 36.8; O2SAT 98; BMI 36.9
== END 2025-08-31 15:56 | disposition home or self-care (01) ==
LOC: HO.HMCFM 12:08
PROVIDERS: PCP Physician Assistant; Visit Provider Physician Assistant
DX: Z00.00 Encounter for general adult medical examination without abnormal findings (principal); I10 Essential (primary) hypertension; B37.31 Acute candidiasis of vulva and vagina; B37.2 Candidiasis of skin and nail